=== PATIENT | female | born 1960 | race Caucasian/White ===

== ENCOUNTER 2020-04-18 06:26 | Day surgery (SDC) | payer OTHER, SELFPAY ==
[2020-04-15 09:03] VITALS: BMI 33.4
--- NOTE | 2020-04-17 10:46 | HO.ANESPROP2 ---
Documented by User: Lisa Whitt 04/17/20 10:47 HPI - Anesthesia Eval Consult details Narrative: 59yo F for colonoscopy PMFSH Past Medical History Medical History (Updated 04/18/20 @ 07:31 by Kelsea Akhtar) Allergic rhinitis Asthma History of depression History of palpitations History of pneumonia Increased BMI ANA on CPAP Surgical History Surgical History Hx of colonoscopy Hx of dilation and curettage Hx of total hysterectomy Social History Social History Smoking Status: Former smoker Smoked in Last 30 Days: No Smoking Quit Date: 42 years ago Patient Interested in Nicotine Replacement: No Patient Given Instructions on How to Stop Smoking: No Second Hand Smoke Exposure: No Use of substances other than those prescribed or required for medical reasons: No Advance Directives: No Advance Directives Information Provided: Yes Meds Allergies Allergy/AdvReac Type Severity Reaction Status Date / Time ciprofloxacin Allergy Unknown hives/edema Verified 04/15/20 08:57 citalopram [Celexa] Allergy Unknown unknown , Verified 04/15/20 08:57 ? itching sertraline [Zoloft] Allergy Unknown hives Verified 04/15/20 08:57 Sulfa (Sulfonamide Allergy Unknown edema, Verified 04/18/20 06:58 Antibiotics) itching Septra Allergy Unknown angioedema Uncoded 04/15/20 08:57 Home Medications Medication Instructions Recorded Confirmed Type albuterol sulfate 2 inh INHALATION Q4-6H PRN 04/15/20 04/15/20 History cholecalciferol (vitamin D3) cap PO DAILY 04/15/20 History loratadine 1 tab PO DAILY 04/15/20 04/15/20 History paroxetine HCl 1 tab PO QAM 04/15/20 04/15/20 History polyethylene glycol 3350 [Purelax] PO 04/15/20 History Exam Exam Date and Time: April 17, 2020 1046 Height,Weight and Vital Signs: Height 5 ft 6 in Weight 93.894 kg Pertinent Lab Results Pertinent Lab Results: Laboratory Tests 03/08/20 08:40 Sodium 140 Potassium 4.5 Chloride 104 BUN 16 Creatinine 0.94 Assessment and Plan Assessment Anesthesia Assessment: Chart Reviewed Documented by User: Kelsea Akhtar 04/18/20 07:33 PMFSH Past Medical History Medical History (Updated 04/18/20 @ 07:31 by Kelsea Akhtar) Allergic rhinitis Asthma History of depression History of palpitations History of pneumonia Increased BMI ANA on CPAP Family History Family history of problems with anesthesia: No Surgical History Surgical History Hx of colonoscopy Hx of dilation and curettage Hx of total hysterectomy History of Problems with Anesthesia: No Social History Social History Smoking Status: Former smoker Smoked in Last 30 Days: No Smoking Quit Date: 42 years ago Patient Interested in Nicotine Replacement: No Patient Given Instructions on How to Stop Smoking: No Second Hand Smoke Exposure: No Use of substances other than those prescribed or required for medical reasons: No Advance Directives: No Advance Directives Information Provided: Yes Meds Allergies Allergy/AdvReac Type Severity Reaction Status Date / Time ciprofloxacin Allergy Unknown hives/edema Verified 04/15/20 08:57 citalopram [Celexa] Allergy Unknown unknown , Verified 04/15/20 08:57 ? itching sertraline [Zoloft] Allergy Unknown hives Verified 04/15/20 08:57 Sulfa (Sulfonamide Allergy Unknown edema, Verified 04/18/20 06:58 Antibiotics) itching Septra Allergy Unknown angioedema Uncoded 04/15/20 08:57 Home Medications Medication Instructions Recorded Confirmed Type albuterol sulfate 2 inh INHALATION Q4-6H PRN 04/15/20 04/15/20 History cholecalciferol (vitamin D3) cap PO DAILY 04/15/20 History loratadine 1 tab PO DAILY 04/15/20 04/15/20 History paroxetine HCl 1 tab PO QAM 04/15/20 04/15/20 History polyethylene glycol 3350 [Purelax] PO 04/15/20 History Exam Height,Weight and Vital Signs: Vital Signs Temp Pulse Resp BP Pulse Ox 10/22/20 07:00 98.6 F 86 16 110/48 L 97 Airway Mallampati Class: I TM Dist: >3cm Neck ROM: Full Loose/Missing/Broken Teeth: No (Cap intact) Heart: RRR Lungs: CTAB Assessment and Plan Assessment Anesthesia Assessment: Anesthesia Plan Discussed and Chart Reviewed Final Anesthetic Review NPO: Yes ASA Class: III Final Preanesthetic Review: No Changes in Pt Med Stat, Meds/Allgs Chart Reviewed, Consent Obtained/Reviewed and Anes Risks/Benef Reviewed Patient Risk: Intermediate Procedure Risk: Low Anesthetic Plan Anesthetic Plan: MAC: Disposition: Standard PACU
[2020-04-18 07:00] VITALS: BP 110/48; PULSE 86; RESP 16; TEMP 37; O2SAT 97
[2020-04-18] MEDS: Lactated Ringers 1,000 ML 100 ML IVCONT (07:03)
[2020-04-18 07:07] VITALS: BMI 33.4
--- NOTE | 2020-04-18 07:41 | MHC.SHP ---
Pre-Procedural Eval Section A The patient is an INPATIENT: No The History & Physical has been completed within 30 days and I have reviewed it.: No Section B Chief Complaint: Fmaily HX Colon CA Details of Present Illness: colon cancer screening Relevant Family History (Specify if Yes): Yes Relevant Social History: None Present Medications: see Short Stay Collaborative assessment Medical History: No relevant PMH (ANA--does not use CPap regularly, asthma, constipation, Gerd, Depression) History of Previous Operations: Relevant previous surgery/procedure and date(s) (Partial hysterectomy-fibroids) Allergies: Allergies Allergy/AdvReac Type Severity Reaction Status Date / Time ciprofloxacin Allergy Unknown hives/edema Verified 04/15/20 08:57 citalopram [Celexa] Allergy Unknown unknown , Verified 04/15/20 08:57 ? itching sertraline [Zoloft] Allergy Unknown hives Verified 04/15/20 08:57 Sulfa (Sulfonamide Allergy Unknown edema, Verified 04/18/20 06:58 Antibiotics) itching Septra Allergy Unknown angioedema Uncoded 04/15/20 08:57 Review of Systems Sugical H&P ROS: Negative: Constitution, Cardiovascular and Neurological and Yes, Specify: Respiratory (ANA--asthma), Psychiatric (Depresssion), Hem-Onc and Gastrointestinal (Constipation; Hx of GERD) Review of Systems Comment: Generally negative Exam Surgical H&P Exam: Normal: HEENT, Normal: Heart, Normal: Lungs, Normal: Extremities and Normal: Abdomen Plan Diagnosis/Plan: Unchanged Patient has been examined and remains a candidate for the planned procedure--YES
--- NOTE | 2020-04-18 07:45 | PM.PROC ---
Brief Operative Note Date of procedure: 04/18/20 Pre-op diagnosis: Colonoscopy, Mother with colon cancer Around age 56. Post-op diagnosis: other (Diverticulosis, Hx colon cancer --Mother) Procedure: Colonoscropy Anesthesia: MAC (CASEY Franz) Surgeon: Tatyana Gonzalez Estimated blood loss (mL): 0 Pathology: none sent Condition: stable Disposition: PACU
[2020-04-18 08:24] VITALS: BP 125/57; PULSE 87; RESP 16; TEMP 36.1; O2SAT 98
[2020-04-18 08:39] VITALS: BP 115/57; PULSE 87; RESP 18; O2SAT 96
--- NOTE | 2020-04-18 09:17 | HO.POSTANES ---
Documented by User: Lisa Whitt 04/18/20 09:17 Post Anesthesia Evaluation Post Anesthesia Evaluation Vital Signs: Vital Signs Temp Pulse Resp BP Pulse Ox 04/18/20 08:39 97 F 87 18 115/57 L 96 04/18/20 08:24 97 F 87 16 125/57 L 98 04/18/20 07:00 98.6 F 86 16 110/48 L 97 Anesthesia: General (TIVA) Mental Status: Awake Pain Control: Satisfactory Nausea/Vomiting: None Hydration: Adequate Anesthesia-Related Issues: No Anes. Related Issues Documented by User: Kelsea Akhtar 04/23/20 07:43 Post Anesthesia Evaluation Post Anesthesia Evaluation Anesthesia: Monitored Mental Status: Awake Pain Control: Satisfactory Nausea/Vomiting: None Hydration: Adequate Anesthesia-Related Issues: No Anes. Related Issues
--- NOTE | 2020-04-21 12:03 | OP_ITS ---
SURGEON: Tatyana Gonzalez MD PREOPERATIVE DIAGNOSIS: Colon cancer screening, increased risk. Mother with history of colon cancer. POSTOPERATIVE DIAGNOSIS: Diverticulosis. PROCEDURE PERFORMED: Colonoscopy. ESTIMATED BLOOD LOSS: Minimal. COMPLICATIONS: No complications. ANESTHESIA: Monitored. ANESTHESIOLOGIST: Wero Franz CRNA. ASSISTANTS:NONE SPECIMENS: Specimens removed; none. PRIMARY CARE PROVIDER: Dr. Madsen. BELT SPLICER: Dr. Gonzalez. FINDINGS: Digital rectal exam revealed decreased sphincter tone. Video colonoscope was introduced without difficulty. It was navigated into a fairly telescoped rectosigmoid and sigmoid. Slow progress was made to this area. Ultimately, scope entered the descending, transverse, ascending colon down into the cecum. Appendiceal orifice was seen. Ileocecal valve was well seen. There were scattered diverticula present on this exam. Prep was excellent. Slow withdrawal of the scope, good rotational views. No mucosal lesions were appreciated, anorectal verge was clear. PLAN: Repeat colon cancer screening with a high-risk family history is 5 years. DIRECTOR OF EARLY CHILDHOOD EDUCATION: No certified medical technician assistant. GRAFT OR IMPLANTS: No grafts or implants. CONDITION: Postprocedure, stable. Tatyana Gonzalez MD MEN/MODL / [id number] MTDD
== END 2020-04-18 09:39 | disposition home or self-care (01) ==
PROVIDERS: PCP Internal Medicine; Visit Provider Internal Medicine Gastroenterology
PROC: 0DJD8ZZ Inspection of Lower Intestinal Tract, Via Natural or Artificial Opening Endoscopic (ICD-10-PCS; CPT 45378; principal; 2020-04-18 07:30)
DX: Z12.11 Encounter for screening for malignant neoplasm of colon (principal); Z80.0 Family history of malignant neoplasm of digestive organs; K57.30 Diverticulosis of large intestine without perforation or abscess without bleeding; K59.04 Chronic idiopathic constipation; K21.9 Gastro-esophageal reflux disease without esophagitis; E78.00 Pure hypercholesterolemia, unspecified; G47.33 Obstructive sleep apnea (adult) (pediatric); J45.909 Unspecified asthma, uncomplicated; M81.0 Age-related osteoporosis without current pathological fracture; Z99.89 Dependence on other enabling machines and devices; Z79.899 Other long term (current) drug therapy; Z88.1 Allergy status to other antibiotic agents; Z88.2 Allergy status to sulfonamides; Z88.8 Allergy status to other drugs, medicaments and biological substances; Z87.01 Personal history of pneumonia (recurrent); Z87.891 Personal history of nicotine dependence
CPT/HCPCS: 45378

== ENCOUNTER → 2020-05-16 14:12 | Outpatient (BNVA) | payer OTHER, SELFPAY | PROVIDERS: PCP Internal Medicine; Referring Provider Internal Medicine; Visit Provider Nurse Practitioner | DX: Z76.89 Persons encountering health services in other specified circumstances (principal) ==

== ENCOUNTER 2021-05-01 11:55 | Outpatient (REF) | payer OTHER, SELFPAY ==
--- NOTE | ~2021-05-01 | MM_ITS ---
EXAMINATION: MM SCREENING DIGITAL BREAST TOMOSYNTHESIS, BILATERAL CLINICAL INFORMATION: Screening. Asymptomatic. The lifetime risk of breast cancer based on the Tyrer-Cuzick Model is 7.6%. COMPARISON: Mammography: March 26, 2020 and studies dating back to February 27, 2010 TECHNIQUE: Digital breast tomosynthesis is performed in both the craniocaudal and mediolateral oblique views along with computer-aided detection (CAD). Synthesized 2D images are generated from the tomosynthesis. Additional right breast exaggerated craniocaudal view performed. FINDINGS: The breasts are heterogeneously dense, which may obscure small masses (ACR BI-RADS breast composition Category c). There are no significant masses, abnormal calcifications, or other abnormalities. MM/MM tomosynthesis screening BI IMPRESSION: There are no significant changes from prior study. ASSESSMENT: BI-RADS 1: Negative RECOMMENDATION: Routine annual mammography screening. This patient's information was entered into a reminder system with a target due date for their next mammogram.
== END 2021-05-01 11:56 | disposition home or self-care (01) ==
LOC: HO.MAMMO 11:55
PROVIDERS: Visit Provider Internal Medicine
DX: Z12.31 Encounter for screening mammogram for malignant neoplasm of breast (principal)
CPT/HCPCS: 77063; 77067

== ENCOUNTER 2022-02-19 07:50 | Outpatient (REF) | payer OTHER, SELFPAY ==
[2022-02-19 11:51] LABS: Alanine Aminotransferase 13 U/L (0-31); Anion Gap 13 (12-20); Aspartate Amino Transferase 17 U/L (5-31); Blood Urea Nitrogen 14 mg/dL (9-16); Calcium 9.3 mg/dL (8.4-10.2); Carbon Dioxide 28 mmol/L (22-29); Chloride 105 mmol/L (96-108); Cholesterol 246 mg/dL; Estimated Glomerular Filt Rate > 60; Glucose Fasting 101 mg/dL (60-99); HDL Cholesterol 65 mg/dL; LDL Cholesterol Calculated 164 mg/dl; Potassium 4.7 mmol/L (3.3-5.1); Sodium 141 mmol/L (135-145); Triglycerides 88 mg/dL
[2022-02-19 12:15] LABS: Vitamin D 25-OH Total 33.9 ng/mL (>30)
== END 2022-02-19 07:51 | disposition home or self-care (01) ==
LOC: HO.HMGCLDS 07:50
PROVIDERS: PCP Internal Medicine; Visit Provider Internal Medicine
DX: M81.0 Age-related osteoporosis without current pathological fracture (principal); E66.09 Other obesity due to excess calories; Z68.33 Body mass index [BMI] 33.0-33.9, adult
CPT/HCPCS: 36415; 80048; 80061; 82306; 84450; 84460

== ENCOUNTER 2022-05-04 08:55 | Outpatient (REF) | payer OTHER, SELFPAY ==
[2022-05-05 10:30] LABS: BV Int Neg Control Negative (Negative); BV Int Pos Control Positive (Positive)
== END 2022-05-04 08:56 | disposition home or self-care (01) ==
LOC: HO.LAB 08:55
PROVIDERS: Visit Provider Emergency Medicine
DX: R30.0 Dysuria (principal); N89.8 Other specified noninflammatory disorders of vagina; R53.1 Weakness; R10.9 Unspecified abdominal pain
CPT/HCPCS: 87086; 87480; 87510; 87660

== ENCOUNTER 2022-05-05 08:37 | Emergency (ER) | payer OTHER, SELFPAY ==
[2022-05-05 08:41] VITALS: BP 116/38; PULSE 96; RESP 20; TEMP 36.6; O2SAT 98; BMI 33.4
[2022-05-05 08:52] LABS: MANUAL DIFF FLAG NO
[2022-05-05 08:56] LABS: Basophils Absolute Auto 0.1 X10*3/uL (0.0-0.2); Basophils Percent Auto 0.6 % (0-2); Eosinophils Absolute Auto 0.1 X10*3/uL (0.0-0.4); Eosinophils Percent Auto 0.9 % (0-4); Hematocrit 39.9 % (37.0-47.0); Hemoglobin 13.2 g/dl (12.0-16.0); Imm Gran Abs Auto 0.03 X10*3/uL (0.00-0.03); Imm Gran Pct Auto 0.3 % (0.0-0.4); Lymphocytes Absolute Auto 1.1 X10*3/uL (1.2-4.9); Lymphocytes Percent Auto 11.5 % (20-40); Mean Corpuscular HGB Conc 33.1 g/dl (31.0-35.0); Mean Corpuscular Hemoglobin 31.1 pg (27.0-33.0); Mean Corpuscular Volume 94.1 fL (80.0-98.0); Mean Platelet Volume 10.6 fL (9.4-12.3); Monocytes Absolute Auto 0.6 X10*3/uL (0.1-1.2); Monocytes Percent Auto 6.7 % (2-11); Neutrophils Absolute Auto 7.6 x10*3/uL (2.0-8.3); Platelet Count 275 X10*3/uL (160-400); Red Blood Count 4.24 X10*6/uL (4.20-5.50); Red Cell Distribution Width 12.2 % (11.0-16.0); White Blood Count 9.6 X10*3/uL (4.8-10.8)
[2022-05-05 09:10] VITALS: BP 113/60; PULSE 83; RESP 16; TEMP 36.8; O2SAT 97
[2022-05-05 09:38] LABS: Creatinine Clr Calc Pharmacy 80.2; Estimated Glomerular Filt Rate > 60
[2022-05-05 09:39] LABS: Anion Gap 16 (12-20); Blood Urea Nitrogen 9 mg/dL (9-16); Calcium 9.2 mg/dL (8.4-10.2); Carbon Dioxide 25 mmol/L (22-29); Chloride 104 mmol/L (96-108); Glucose Random 127 mg/dL (60-115); Potassium 3.7 mmol/L (3.3-5.1); Sodium 141 mmol/L (135-145)
[2022-05-05 10:23] LABS: Appearance Urine Clear; Color Urine Dark Yellow; Glucose Urine UA Negative (Negative); Leukocyte Esterase Urine Small (1+) (Negative); Nitrite Urine Negative (Negative); Specific Gravity - Urine 1.025 (1.005-1.025); UMIC TRIGGER UACC YES; Urine Blood Trace (Negative); Urine Ketones Trace mg/dL (Negative); Urine Protein 30 (1+) mg/dL (Neg-Trace)
[2022-05-05 10:28] LABS: Bacteria Urine Trace (None Seen); UACC Culture Trigger YES
--- NOTE | 2022-05-05 10:37 | ED.GENADULT ---
HPI - General Adult General Chief complaint: Abdominal Pain Stated complaint: Abd pain Time Seen by Provider: 05/05/22 09:46 Source: patient Mode of arrival: ambulatory Limitations: no limitations History of Present Illness HPI narrative: 61-year-old female presents to the ED lower abdominal cramping intermittently for the past couple weeks and also states constipation but finally had a bowel movement this morning. Patient denies any flank pain, fever, chills, hematuria, or dysuria. Patient denies any recent trauma. Related Data Home Medications Medication Instructions Recorded Confirmed albuterol sulfate 90 mcg/actuation 2 inh inhalation Q4-6H PRN Wheezing 04/15/20 02/05/22 breath activated powder inhaler cholecalciferol (vitamin D3) 25 cap PO DAILY 04/15/20 02/05/22 mcg (1,000 unit) capsule polyethylene glycol 3350 17 PO 04/15/20 02/05/22 gram/dose oral powder (Purelax) Previous Rx's Medication Instructions Recorded fluticasone propionate 50 1 spray intranasal DAILY #16 grams 11/04/20 mcg/actuation nasal spray,suspension (Flonase Allergy Relief) loratadine 10 mg tablet 10 mg PO DAILY PRN allergic 02/17/22 symptoms #90 tabs paroxetine HCl 20 mg tablet 20 mg PO QAM 90 days #90 tabs 02/17/22 cefuroxime axetil 250 mg tablet 250 mg PO Q12H 7 days #14 tabs 05/05/22 naproxen 500 mg tablet 500 mg PO BID PRN pain 10 days #20 05/05/22 tabs Allergies Allergy/AdvReac Type Severity Reaction Status Date / Time ciprofloxacin Allergy Unknown hives/edema Verified 05/04/22 08:30 citalopram [Celexa] Allergy Unknown unknown , Verified 05/04/22 08:30 ? itching sertraline [Zoloft] Allergy Unknown hives Verified 05/04/22 08:30 Sulfa (Sulfonamide Allergy Unknown edema, Verified 05/04/22 08:30 Antibiotics) itching Septra Allergy Unknown angioedema Uncoded 05/04/22 08:30 Review of Systems Review of Systems: Lower abdominal cramping. Constipation. Yes all other systems are reviewed and are negative PMFSH Past Medical History Medical History (Updated 05/05/22 @ 10:47 by JOYA Mathur) Allergic rhinitis Anxiety and depression COVID-19 vaccination declined History of uterine fibroid Mild intermittent asthma Obesity ANA on CPAP Osteoporosis Urticaria Surgical History Hx of colonoscopy Hx of dilation and curettage Hx of LASIK Hx of total hysterectomy Family History Family History Father Diabetes Gout Obese Mother Colon cancer H/O: hysterectomy Maternal Aunt Cancer Maternal Aunt Cancer Social History Social History Household Members: Friend(s) Housing: House Alcohol intake: never Patient Tobacco Use Status: Former Tobacco user Cigarettes Per Day: 2 Smoked in Last 30 Days: No e-Cigarette/Vaping Use: Never Used Second Hand Smoke Exposure: No Use of substances other than those prescribed or required for medical reasons: No Advance Directives: No Advance Directives Information Provided: Yes service: No Current occupational status: employed Cognitive needs: No Hearing needs: No Vision needs: Yes Physical Exam ED Vital Signs: Vital Signs - 24 hr 05/05/22 08:41 05/05/22 09:10 05/05/22 10:46 Temperature 97.8 F 98.3 F 99 F Pulse Rate 96 83 76 Respiratory Rate 20 16 16 Blood Pressure 116/38 L 113/60 116/59 L Pulse Oximetry 98 97 98 Oxygen Delivery Method Room Air Room Air Room Air BMI result Body Mass Index 33.4 Const General: cooperative, healthy appearing, comfortable, no acute distress, well developed, alert, awake and Physically active Orientation/consciousness: oriented to person, oriented to place, oriented to time and patient oriented x3 HENMT Head: Yes normal to inspection, Yes No palpable skull fracture present, Yes normocephalic, Yes atraumatic and No abrasion Eyes General: appearance normal, both eyes and all related structures Neck Neck: Yes normal visual inspection, Yes full ROM, Yes no lymphadenopathy, Yes no meningeal signs, Yes trachea midline, Yes supple, No anterior neck swelling and No tender Chest Chest palpation & inspection: normal inspection of the chest and normal palpation of entire chest wall Resp Effort & Inspection: normal respiratory effort and able to speak in complete sentences Auscultation: clear to auscultation bilaterally Cardio Jugular venous distension: no JVD Heart sounds: S1 normal heart sound present and S2 normal heart sound present GI Other: normal bowel sounds. Inspection: Yes normal to inspection, No abdominal wall ecchymosis and No distended Palpation (GI): Soft to palpation, not firm, Tenderness to palpation present (GI) suprapubicly, no guarding and not rigid General: No CVA tenderness and Yes no CVA tenderness Back/Spine/Pelvis Back: no CVA tenderness, No CVA tenderness and No back tenderness Skin General skin exam: no rashes or lesions noted and elasticity normal Neuro General: oriented to person, oriented to place, oriented to time, patient oriented x3, gait normal, tone normal and no meningeal signs Cranial nerves: Yes CN's II-XII intact bilaterally Extrem General: Yes normal to inspection and Yes full ROM Psych Appearance: grossly normal, well kempt and not disheveled Course Course Course Narrative: Rapid medical screening done in triage. Patient labs came back with normal white blood cell count and normal chemistry. Would add liver enzymes and lipase. Will order urinalysis. Patient states history of diverticulosis. If urinalysis come back normal patient will be sent for CT scan and to rule out colitis. Reevaluation(s) Reevaluation #1: Liver enzymes and lipase were normal. UA shows UTI. patient sleeping comfortable int he bed and not in distress. NO abdominal CT scan needed. Not suspecting colitis, kidney stone, bowel obstruction, or pyelonephritis. Not suspect any other life threatening emerging abdominal etiology. Patient informed to follow-up primary care provider Time: 10:44 UTI Medical Decision Making Lab Data Result diagrams: 05/05/22 08:48 05/05/22 08:48 Labs: Lab Results 05/05/22 05/05/22 05/05/22 Range/Units 08:48 08:48 09:59 WBC 9.6 (4.8-10.8) X10*3/uL RBC 4.24 (4.20-5.50) X10*6/uL Hgb 13.2 (12.0-16.0) g/dl Hct 39.9 (37.0-47.0) % MCV 94.1 (80.0-98.0) fL MCH 31.1 (27.0-33.0) pg MCHC 33.1 (31.0-35.0) g/dl RDW 12.2 (11.0-16.0) % Plt Count 275 (160-400) X10*3/uL MPV 10.6 (9.4-12.3) fL Immature Gran % (Auto) 0.3 (0.0-0.4) % Neut % (Auto) 80.0 H (45-73) % Lymph % (Auto) 11.5 L (20-40) % [place] % (Auto) 6.7 (2-11) % Eos % (Auto) 0.9 (0-4) % Baso % (Auto) 0.6 (0-2) % Lymph # (Auto) 1.1 L (1.2-4.9) X10*3/uL [place] # (Auto) 0.6 (0.1-1.2) X10*3/uL Eos # (Auto) 0.1 (0.0-0.4) X10*3/uL Baso # (Auto) 0.1 (0.0-0.2) X10*3/uL Abs Immat Gran (auto) 0.03 (0.00-0.03) X10*3/uL Absolute Neuts (auto) 7.6 (2.0-8.3) x10*3/uL Absolute Nucleated RBC 0.000 (0.0-0.012) X10*3/uL Nucleated RBC % (auto) 0.0 (0.0-0.2) /100WBC Sodium 141 (135-145) mmol/L Potassium 3.7 D (3.3-5.1) mmol/L Chloride 104 (96-108) mmol/L Carbon Dioxide 25 (22-29) mmol/L Anion Gap 16 (12-20) BUN 9 (9-16) mg/dL Creatinine 0.85 (0.5-1.4) mg/dL Estim Creat Clear Calc 80.2 Estimated GFR > 60 Random Glucose 127 H (60-115) mg/dL Calcium 9.2 (8.4-10.2) mg/dL Total Bilirubin 0.6 (0.0-1.0) mg/dL Direct Bilirubin 0.3 (0.0-0.5) mg/dL AST 14 (5-31) U/L ALT 13 (0-31) U/L Alkaline Phosphatase 71 (39-117) U/L Total Protein 6.9 (6.5-8.0) g/dL Albumin 4.2 (3.5-5.0) g/dL Lipase 8 (8-78) U/L Urine Color Dark Yellow Urine Appearance Clear Urine pH 6.0 (5.0-9.0) Ur Specific [place] 1.025 (1.005-1.025) Urine Protein 30 (1+) H (Neg-Trace) mg/dL Urine Glucose (UA) Negative (Negative) mg/dL Urine Ketones Trace (Negative) mg/dL Urine Blood Trace H (Negative) Urine Nitrite Negative (Negative) Ur Leukocyte Esterase Small (1+) H (Negative) Urine RBC 3-5 H (0-2) /HPF Urine WBC 6-10 H (0-5) /HPF Ur Squamous Epith Cells 3-5 (0-2) /HPF Urine Bacteria Trace (None Seen) Hyaline Casts 3-5 (0-2) /LPF Discharge Plan Discharge Clinical Impression: UTI (urinary tract infection), Abdominal pain Patient Disposition: Home, Self-Care Instructions: Urinary Tract Infection in Women (ED), Abdominal Pain (ED) Additional Instructions: Your blood work came back normal. Your urine shows an infection. You will be discharged with antibiotics. Return to the ED immediately for worsening abdominal pain, nausea, vomiting, flank pain, fever, chills, hematuria, dysuria, or any other concerning symptoms. Please follow up with PCP. Prescriptions: New naproxen 500 mg tablet 500 mg PO BID PRN (Reason: pain) 10 Days Qty: 20 0RF cefuroxime axetil 250 mg tablet 250 mg PO Q12H 7 Days Qty: 14 0RF No Action fluticasone propionate [Flonase Allergy Relief] 50 mcg/actuation spray,suspension 1 spray intranasal DAILY Qty: 16 0RF Rx Instructions: administer into each nostril polyethylene glycol 3350 [Purelax] 17 gram/dose powder PO cholecalciferol (vitamin D3) 25 mcg (1,000 unit) capsule PO DAILY albuterol sulfate 90 mcg/actuation Aerosol Powdr Breath Activated 2 inh INHALATION Q4-6H PRN (Reason: Wheezing) loratadine 10 mg tablet 10 mg PO DAILY PRN (Reason: allergic symptoms) Qty: 90 1RF paroxetine HCl 20 mg tablet 20 mg PO QAM 90 Days Qty: 90 3RF Stand Alone Forms: Work/School Release Interventions: ED Discharge Assessment Last Done: 05/05/22 11:04 Discharge Date/Time: 05/05/22 11:06 Print Language: [place]
[2022-05-05 10:46] VITALS: BP 116/59; PULSE 76; RESP 16; TEMP 37.2; O2SAT 98
[2022-05-05 11:00] LABS: Alanine Aminotransferase 13 U/L (0-31); Albumin Level 4.2 g/dL (3.5-5.0); Alkaline Phosphatase 71 U/L (39-117); Aspartate Amino Transferase 14 U/L (5-31); Bilirubin Direct 0.3 mg/dL (0.0-0.5); Bilirubin Total 0.6 mg/dL (0.0-1.0); Lipase 8 U/L (8-78); Total Protein 6.9 g/dL (6.5-8.0)
== END 2022-05-05 11:06 | disposition home or self-care (01) ==
PROVIDERS: Physician Assistant; Emergency Provider Emergency Medicine Emergency Medical Services; PCP Internal Medicine
DX: R10.30 Lower abdominal pain, unspecified (principal); N39.0 Urinary tract infection, site not specified; E66.9 Obesity, unspecified; Z68.33 Body mass index [BMI] 33.0-33.9, adult
CPT/HCPCS: 36415; 80048; 80076; 81001; 83690; 85025; 99283; 99284

== ENCOUNTER 2022-06-05 12:57 | Outpatient (REF) | payer OTHER, SELFPAY ==
[2022-06-05 13:41] LABS: Binax Internal Control QC Valid; Binax Now Covid-19 Ag Negative (Negative)
== END 2022-06-05 12:58 | disposition home or self-care (01) ==
LOC: HO.HMGCLDS 12:57
PROVIDERS: PCP Internal Medicine
DX: J02.9 Acute pharyngitis, unspecified (principal); Z20.822 Contact with and (suspected) exposure to COVID-19
CPT/HCPCS: 87811; C9803

== ENCOUNTER 2022-11-21 08:33 | Emergency (ER) | payer OTHER, SELFPAY ==
--- NOTE | ~2022-11-21 | CT_ITS ---
EXAMINATION: CT ABDOMEN AND PELVIS WITH CONTRAST CLINICAL INFORMATION: Hematuria, nausea and vomiting COMPARISON: None available. TECHNIQUE: Multidetector volumetric images were obtained from the superior aspect of the liver through the pubic symphysis following administration 85 mL of Omnipaque 350 intravenous contrast. Sagittal and coronal reformatted images were obtained on the technologist's workstation. Oral contrast: No This CT examination was performed using dose optimization techniques as appropriate, variously including the following: *Automated exposure control *Adjustment of mA and/or kV according to patient size (this includes techniques or standardized protocols for targeted exams where dose is matched to indication/reason for exam; i.e. extremities or head) *Use of iterative reconstruction technique DLP: 680 mGy-cm FINDINGS: LUNG BASES: The lung bases are clear heart size is normal LIVER, GALLBLADDER, AND BILIARY TREE: The liver is normal in size, shape, and attenuation. 3 mm hypodensity seen in left hepatic lobe axial image 19/3. This too small to correctly characterize. No additional lesions seen. No intrahepatic ductal dilatation. The gallbladder is unremarkable with no evidence of radiopaque gallstones, gallbladder wall thickening, or obvious pericholecystic inflammatory changes. PANCREAS: Unremarkable. SPLEEN: The pancreas is unremarkable. A small calcification along the anterior spleen. ADRENAL GLANDS: Unremarkable. KIDNEYS AND URETERS: The kidneys are normal in size, shape, and attenuation. No hydronephrosis, hydroureter, or calculi seen. No perinephric stranding. There is a 9 mm hypodensity midpole left kidney probable cyst BLADDER: The bladder is nondistended and appears unremarkable. GASTROINTESTINAL TRACT: There is moderate scattered stool seen throughout the colon consistent with constipation. There is mild mural thickening and pericolic fat stranding seen involving redundant sigmoid colon likely colitis ABDOMINAL WALL: No significant hernia is appreciated. LYMPH NODES: Normal. VASCULAR: The abdominal aorta is of normal caliber. PELVIC VISCERA: Moderate stool in the sigmoid colon OSSEOUS STRUCTURES: Unremarkable. CT/CT abdomen pelvis w IV con IMPRESSION: 1. Mild mural thickening and pericolic fat stranding involving redundant sigmoid colon likely colitis. There is moderate constipation. 2. No radiopaque urolith or hydroureteronephrosis. Fleischner guidelines were followed.
[2022-11-21 09:04] VITALS: BP 109/71; PULSE 77; RESP 17; TEMP 36.7; O2SAT 98; BMI 33.4
[2022-11-21 09:54] LABS: Appearance Urine Clear; Color Urine Yellow; Glucose Urine UA Negative (Negative); Leukocyte Esterase Urine Small (1+) (Negative); Nitrite Urine Negative (Negative); PH 5.5 (5.0-9.0); UMIC TRIGGER UACC YES; Urine Blood Trace (Negative); Urine Ketones Trace mg/dL (Negative); Urine Protein Negative (Neg-Trace)
--- NOTE | 2022-11-21 09:58 | ED_ITS ---
HPI - General Adult General Chief complaint: General Medical Stated complaint: abd pain Time Seen by Provider: 11/21/22 09:42 Source: patient, RN notes reviewed and old records reviewed Mode of arrival: ambulatory History of Present Illness HPI narrative: 62-year-old female with a past medical history of allergic rhinitis, anxiety, depression, uterine fibroid, asthma, obesity, ANA, presenting to the ED complaining of lower abdominal pain/pressure, headache, generalized fatigue, and myalgias since yesterday. Also reports associated nausea and vomiting. Denies fever, vision changes/loss, diarrhea, dysuria/hematuria, flank pain Onset (ago): day(s) Related Data Home Medications Medication Instructions Recorded Confirmed albuterol sulfate 90 mcg/actuation 2 inh inhalation Q4-6H PRN Wheezing 04/15/20 06/05/22 breath activated powder inhaler cholecalciferol (vitamin D3) 25 cap PO DAILY 04/15/20 06/05/22 mcg (1,000 unit) capsule polyethylene glycol 3350 17 PO 04/15/20 06/05/22 gram/dose oral powder (Purelax) Previous Rx's Medication Instructions Recorded paroxetine HCl 20 mg tablet 20 mg PO QAM 90 days #90 tabs 02/17/22 cefuroxime axetil 250 mg tablet 250 mg PO Q12H 7 days #14 tabs 05/05/22 naproxen 500 mg tablet 500 mg PO BID PRN pain 10 days #20 05/05/22 tabs metronidazole 500 mg tablet 500 mg PO BID 7 days #14 tabs 05/11/22 loratadine 10 mg tablet 10 mg PO DAILY PRN allergic 06/12/22 symptoms #90 tabs fluticasone propionate 50 1 spray intranasal DAILY #16 grams 08/14/22 mcg/actuation nasal spray,suspension (Flonase Allergy Relief) cefuroxime axetil 500 mg tablet 500 mg PO BID 7 days #14 tabs 11/21/22 Allergies Allergy/AdvReac Type Severity Reaction Status Date / Time ciprofloxacin Allergy Unknown hives/edema Verified 06/05/22 12:22 citalopram [Celexa] Allergy Unknown unknown , Verified 06/05/22 12:22 ? itching sertraline [Zoloft] Allergy Unknown hives Verified 06/05/22 12:22 Sulfa (Sulfonamide Allergy Unknown edema, Verified 06/05/22 12:22 Antibiotics) itching Septra Allergy Unknown angioedema Uncoded 06/05/22 12:22 Review of Systems Review of Systems: Constitutional: No Fever, No Chills,No Fatigue, No Malaise ENT/Mouth: No Ear Pain, No Nasal Congestion, No sore throat, No Rhinorrhea, No Swallowing Difficulty Eyes: No Eye Pain, No Swelling, No Vision Changes Cardiovascular: No Chest Pain, No SOB, No Edema, No Palpitations Respiratory: No Cough, No Dyspnea Gastrointestinal: +Nausea, + Vomiting, No Diarrhea, No Constipation, +Abdominal pain Genitourinary: No Dysuria, No Urinary Frequency, No Hematuria,No Flank Pain, No Urinary Flow Changes, No Hesitancy Musculoskeletal: No joint pain, No Myalgias, No Joint Swelling Skin: No Skin Lesions, No rash Neuro: No Weakness, No Dizziness, No Headache Yes all other systems are reviewed and are negative Constitutional: Constitutional: Reports as per [facility] Past Medical History Attestation statement: The following information was validated with the patient. Source: old records reviewed Medical History Acute viral pharyngitis Allergic rhinitis Anxiety and depression COVID-19 vaccination declined History of uterine fibroid Mild intermittent asthma Obesity ANA on CPAP Osteoporosis Urticaria Surgical History Hx of colonoscopy Hx of dilation and curettage Hx of LASIK Hx of total hysterectomy Family History Family History Father Diabetes Gout Obese Mother Colon cancer H/O: hysterectomy Maternal Aunt Cancer Maternal Aunt Cancer Social History Social History Household Members: Friend(s) Housing: House Alcohol intake: current Alcohol intake frequency: holidays/special occasions only Patient Tobacco Use Status: Former Tobacco user Cigarettes Per Day: 2 Smoked in Last 30 Days: No e-Cigarette/Vaping Use: Never Used Second Hand Smoke Exposure: No Use of substances other than those prescribed or required for medical reasons: No Advance Directives: No Advance Directives Information Provided: Yes Patient : No service: No Current occupational status: employed Cognitive needs: No Hearing needs: No Vision needs: Yes Physical Exam ED Vital Signs: Vital Signs - 24 hr 11/21/22 09:04 11/21/22 10:51 11/21/22 13:38 Temperature 98.1 F 98.9 F 98.4 F Pulse Rate 77 69 78 Respiratory Rate 17 18 16 Blood Pressure 109/71 134/55 L 122/53 L Pulse Oximetry 98 95 100 Oxygen Delivery Method Room Air Room Air Room Air 11/21/22 14:27 11/21/22 14:33 Temperature 98.2 F 98.6 F Pulse Rate 71 69 Respiratory Rate 15 18 Blood Pressure 140/78 H 133/52 L Pulse Oximetry 96 97 Oxygen Delivery Method Room Air Room Air BMI result Body Mass Index 33.4 Const General: cooperative and no acute distress Orientation/consciousness: patient oriented x3 Limitations: no limitations HENMT Head: Yes normal to inspection and Yes atraumatic Ears: hearing grossly normal bilaterally General nose exam: Normal external nose present Face and sinus: Yes normal facial exam Eyes General: appearance normal, both eyes and all related structures EOM: EOMs intact bilaterally Neck Neck: Yes normal visual inspection and Yes no meningeal signs Resp Effort & Inspection: normal respiratory effort and no respiratory distress Auscultation: clear to auscultation bilaterally Cardio Rate: regular rate Heart sounds: S1 normal heart sound present and S2 normal heart sound present GI Inspection: Yes normal to inspection Palpation (GI): Soft to palpation, Tenderness to palpation present (GI) suprapubicly (mild); with no rebound tenderness, no guarding and not rigid General: Yes no CVA tenderness Back/Spine/Pelvis Back: no CVA tenderness Skin Rashes: no rashes Wounds: no wounds Neuro General: patient oriented x3, tone normal and no meningeal signs Extrem General: Yes normal to inspection Course Course Course Narrative: -1253--no leukocytosis. Labs otherwise reassuring -UA with trace blood, 1+ leuk esterase, rbc's, not infected -COVID and influenza negative >1256--on re-evaluation patient reports continued abdominal discomfort. Abdomen soft, RLQ focal tenderness now appreciated. Will obtain CT to rule out appendicitis 1430--CT abdomen pelvis w IV con IMPRESSION: 1.? Mild mural thickening and pericolic fat stranding involving redundant sigmoid colon likely colitis. There is moderate constipation. 2.? No radiopaque urolith or hydroureteronephrosis. ? Fleischner guidelines were followed. > on re-evaluation patient reports mild symptomatic improvement. Tolerating p.o. Results discussed with patient including worrisome signs and symptoms and strict return precautions, and when to return to the emergency department. They verbalized understanding and feel safe for discharge at this time. Medications Administered Discontinued Medications Generic Name Dose Route Start Last Admin Trade Name Freq PRN Reason Stop Dose Admin Acetaminophen/Butalbital/Caffeine 1 tab 11/21/22 12:58 11/21/22 13:09 Butalb/Acetamin/Caff 50/325/40 Tablet PO 11/21/22 12:59 1 tab ONCE ONE Administration Diphenhydramine HCl 12.5 mg 11/21/22 10:04 11/21/22 10:44 Diphenhydramine Hcl 50 Mg/Ml Vial IVPUSH 11/21/22 10:05 12.5 mg ONCE ONE Administration Sodium Chloride 1,000 mls @ 999 mls/hr 11/21/22 10:15 11/21/22 14:22 Ns IV 11/21/22 11:15 Infused .Q1H1M CHARAN Infusion Iohexol 85 ml 11/21/22 13:31 11/21/22 13:32 Iohexol 350 Mg/Ml 100 Ml Infus..Btl IV 11/21/22 13:32 85 ml ONCE ONE Administration Ketorolac Tromethamine 15 mg 11/21/22 10:04 11/21/22 10:43 Ketorolac Tromethamine 15 Mg/Ml Vial IVPUSH 11/21/22 10:05 15 mg ONCE ONE Administration Metoclopramide HCl 10 mg 11/21/22 10:04 11/21/22 10:44 Metoclopramide Hcl 10 Mg/2 Ml Vial IVPUSH 11/21/22 10:05 10 mg ONCE ONE Administration Medical Decision Making Medical Decision Making MDM Narrative: 62-year-old female with a past medical history of allergic rhinitis, anxiety, depression, uterine fibroid, asthma, obesity, ANA, presenting to the ED complaining of lower abdominal pain/pressure, headache, generalized fatigue, and myalgias since yesterday. On exam vital signs stable, NAD, nontoxic appearing, abdomen soft/mild suprapubic tenderness, no rebound or guarding, no CVAT. Concern for UTI vs gastroenteritis/colitis vs viral syndrome. Lower suspicion for renal stone/pyelo, appendicitis/diverticulitis or cholecystitis at this time. Low suspicion for meningitis/encephalitis or CVA Plan: Labs, UA, COVID/flu testing, IVF, pain control, re-evaluate Please refer to course for remaining clinical decision making, interpretation of labs/imaging results, and discussions with consultants and/or family members. Differential Diagnosis Differential Diagnoses: The differential diagnosis associated with the presentation includes As above Admission/Observation Consideration of admission/observation: Escalation of care including admission/observation considered Lab Data MDM Lab Attestation statement: I reviewed the patient's lab results. 11/21/22 10:18 11/21/22 10:18 Labs: Lab Results 11/21/22 11/21/22 11/21/22 Range/Units 09:45 10:18 10:18 WBC 8.0 (4.8-10.8) X10*3/uL RBC 4.00 L (4.20-5.50) X10*6/uL Hgb 12.6 (12.0-16.0) g/dl Hct 37.4 (37.0-47.0) % MCV 93.5 (80.0-98.0) fL MCH 31.5 (27.0-33.0) pg MCHC 33.7 (31.0-35.0) g/dl RDW 12.4 (11.0-16.0) % Plt Count 221 (160-400) X10*3/uL MPV 10.8 (9.4-12.3) fL Immature Gran % (Auto) 0.3 (0.0-0.4) % Neut % (Auto) 76.7 H (45-73) % Lymph % (Auto) 12.3 L (20-40) % Williams % (Auto) 8.9 (2-11) % Eos % (Auto) 1.4 (0-4) % Baso % (Auto) 0.4 (0-2) % Lymph # (Auto) 1.0 L (1.2-4.9) X10*3/uL Williams # (Auto) 0.7 (0.1-1.2) X10*3/uL Eos # (Auto) 0.1 (0.0-0.4) X10*3/uL Baso # (Auto) 0.0 (0.0-0.2) X10*3/uL Abs Immat Gran (auto) 0.02 (0.00-0.03) X10*3/uL Absolute Neuts (auto) 6.2 (2.0-8.3) x10*3/uL Absolute Nucleated RBC 0.000 (0.0-0.012) X10*3/uL Nucleated RBC % (auto) 0.0 (0.0-0.2) /100WBC Sodium 137 (135-145) mmol/L Potassium 3.9 (3.3-5.1) mmol/L Chloride 107 (96-108) mmol/L Carbon Dioxide 22 (22-29) mmol/L Anion Gap 12 (12-20) BUN 11 (9-16) mg/dL Creatinine 0.79 (0.5-1.4) mg/dL Estim Creat Clear Calc 85.2 Estimated GFR > 60 Random Glucose 107 (60-115) mg/dL Calcium 8.9 (8.4-10.2) mg/dL Magnesium 2.0 (1.6-2.6) mg/dL Total Bilirubin 0.7 (0.0-1.0) mg/dL Direct Bilirubin 0.2 (0.0-0.5) mg/dL AST 15 (5-31) U/L ALT 14 (0-31) U/L Alkaline Phosphatase 66 (39-117) U/L Total Protein 6.3 L (6.5-8.0) g/dL Albumin 3.7 (3.5-5.0) g/dL Lipase 14 (8-78) U/L Urine Color Yellow Urine Appearance Clear Urine pH 5.5 (5.0-9.0) Ur Specific [place] 1.020 (1.005-1.025) Urine Protein Negative (Neg-Trace) mg/dL Urine Glucose (UA) Negative (Negative) mg/dL Urine Ketones Trace (Negative) mg/dL Urine Blood Trace H (Negative) Urine Nitrite Negative (Negative) Ur Leukocyte Esterase Small (1+) H (Negative) Urine RBC 3-5 H (0-2) /HPF Urine WBC 0-5 (0-5) /HPF Ur Squamous Epith Cells 0-2 (0-2) /HPF Calcium Oxalate Crystal Present Urine Bacteria None Seen (None Seen) Hyaline Casts 0-2 (0-2) /LPF COVID-19 (МАРИЯ) (Negative) COVID-19 Clin Com Influenza Type A (DIONTE) (Negative) Influenza Type B (DIONTE) (Negative) Influenza A & B Note 11/21/22 11/21/22 Range/Units 11:20 11:20 WBC (4.8-10.8) X10*3/uL RBC (4.20-5.50) X10*6/uL Hgb (12.0-16.0) g/dl Hct (37.0-47.0) % MCV (80.0-98.0) fL MCH (27.0-33.0) pg MCHC (31.0-35.0) g/dl RDW (11.0-16.0) % Plt Count (160-400) X10*3/uL MPV (9.4-12.3) fL Immature Gran % (Auto) (0.0-0.4) % Neut % (Auto) (45-73) % Lymph % (Auto) (20-40) % Williams % (Auto) (2-11) % Eos % (Auto) (0-4) % Baso % (Auto) (0-2) % Lymph # (Auto) (1.2-4.9) X10*3/uL Williams # (Auto) (0.1-1.2) X10*3/uL Eos # (Auto) (0.0-0.4) X10*3/uL Baso # (Auto) (0.0-0.2) X10*3/uL Abs Immat Gran (auto) (0.00-0.03) X10*3/uL Absolute Neuts (auto) (2.0-8.3) x10*3/uL Absolute Nucleated RBC (0.0-0.012) X10*3/uL Nucleated RBC % (auto) (0.0-0.2) /100WBC Sodium (135-145) mmol/L Potassium (3.3-5.1) mmol/L Chloride (96-108) mmol/L Carbon Dioxide (22-29) mmol/L Anion Gap (12-20) BUN (9-16) mg/dL Creatinine (0.5-1.4) mg/dL Estim Creat Clear Calc Estimated GFR Random Glucose (60-115) mg/dL Calcium (8.4-10.2) mg/dL Magnesium (1.6-2.6) mg/dL Total Bilirubin (0.0-1.0) mg/dL Direct Bilirubin (0.0-0.5) mg/dL AST (5-31) U/L ALT (0-31) U/L Alkaline Phosphatase (39-117) U/L Total Protein (6.5-8.0) g/dL Albumin (3.5-5.0) g/dL Lipase (8-78) U/L Urine Color Urine Appearance Urine pH (5.0-9.0) Ur Specific [place] (1.005-1.025) Urine Protein (Neg-Trace) mg/dL Urine Glucose (UA) (Negative) mg/dL Urine Ketones (Negative) mg/dL Urine Blood (Negative) Urine Nitrite (Negative) Ur Leukocyte Esterase (Negative) Urine RBC (0-2) /HPF Urine WBC (0-5) /HPF Ur Squamous Epith Cells (0-2) /HPF Calcium Oxalate Crystal Urine Bacteria (None Seen) Hyaline Casts (0-2) /LPF COVID-19 (МАРИЯ) Negative (Negative) COVID-19 Clin Com See Note Influenza Type A (DIONTE) Negative (Negative) Influenza Type B (DIONTE) Negative (Negative) Influenza A & B Note See Note Radiology Impression Discussion of test interpretation with radiology: I have reviewed the radiologist's reading. External Record Review External record reviewed: Inpatient record, Office record, Outpatient record, Prior outpatient labs, Prior outpatient radiology, Primary care record and Outside ED record Tests considered The following testing was considered but not selected: As above Discharge Plan Discharge Clinical Impression: Colitis Patient Disposition: Home, Self-Care Instructions: Colitis (ED) Additional Instructions: Your CT scan shows colitis Ceftin is an antibiotic please take as prescribed practice bland diet Take Tylenol Motrin as needed Follow-up with her doctor If symptoms persist or worsen return to the ED Prescriptions: New cefuroxime axetil 500 mg tablet 500 mg PO BID 7 Days Qty: 14 0RF No Action metronidazole 500 mg tablet 500 mg PO BID 7 Days Qty: 14 0RF loratadine 10 mg tablet 10 mg PO DAILY PRN (Reason: allergic symptoms) Qty: 90 1RF fluticasone propionate [Flonase Allergy Relief] 50 mcg/actuation spray,suspension 1 spray intranasal DAILY Qty: 16 1RF Rx Instructions: administer into each nostril polyethylene glycol 3350 [Purelax] 17 gram/dose powder PO cholecalciferol (vitamin D3) 25 mcg (1,000 unit) capsule PO DAILY albuterol sulfate 90 mcg/actuation Aerosol Powdr Breath Activated 2 inh INHALATION Q4-6H PRN (Reason: Wheezing) naproxen 500 mg tablet 500 mg PO BID PRN (Reason: pain) 10 Days Qty: 20 0RF cefuroxime axetil 250 mg tablet 250 mg PO Q12H 7 Days Qty: 14 0RF paroxetine HCl 20 mg tablet 20 mg PO QAM 90 Days Qty: 90 3RF Referrals: [facility] [place] [facility] [Provider Group] Shirley Madsen MD [Primary Care Provider] -
[2022-11-21 10:07] LABS: Bacteria Urine None Seen (None Seen); Calcium Oxalate Crystals Urine Present; Hyaline Casts Urine 0-2 /LPF (0-2); Squamous Epithelial Cell Urine 0-2 /HPF (0-2); UACC Culture Trigger YES; WBC Urine 0-5 /HPF (0-5)
[2022-11-21 10:23] LABS: MANUAL DIFF FLAG NO
[2022-11-21 10:25] LABS: Basophils Percent Auto 0.4 % (0-2); Eosinophils Absolute Auto 0.1 X10*3/uL (0.0-0.4); Eosinophils Percent Auto 1.4 % (0-4); Hematocrit 37.4 % (37.0-47.0); Hemoglobin 12.6 g/dl (12.0-16.0); Imm Gran Abs Auto 0.02 X10*3/uL (0.00-0.03); Imm Gran Pct Auto 0.3 % (0.0-0.4); Lymphocytes Percent Auto 12.3 % (20-40); Mean Corpuscular HGB Conc 33.7 g/dl (31.0-35.0); Mean Corpuscular Hemoglobin 31.5 pg (27.0-33.0); Mean Corpuscular Volume 93.5 fL (80.0-98.0); Mean Platelet Volume 10.8 fL (9.4-12.3); Monocytes Absolute Auto 0.7 X10*3/uL (0.1-1.2); Monocytes Percent Auto 8.9 % (2-11); Neutrophils Absolute Auto 6.2 x10*3/uL (2.0-8.3); Neutrophils Percent Auto 76.7 % (45-73); Platelet Count 221 X10*3/uL (160-400); Red Cell Distribution Width 12.4 % (11.0-16.0)
[2022-11-21] MEDS: Ketorolac Tromethamine 15 MG/ML VIAL IVPUSH (10:43)
[2022-11-21] MEDS: diphenhydrAMINE HCL 50 MG/ML VIAL 12.5 MG IVPUSH (10:44)
[2022-11-21] MEDS: Metoclopramide HCl 10 MG/2 ML VIAL IVPUSH (10:44)
[2022-11-21] MEDS: 0.9 % Sodium Chloride 1,000 ML 999 ML IV (10:44)
[2022-11-21 10:51] VITALS: BP 134/55; PULSE 69; RESP 18; TEMP 37.2; O2SAT 95
[2022-11-21 10:57] LABS: Alanine Aminotransferase 14 U/L (0-31); Albumin Level 3.7 g/dL (3.5-5.0); Alkaline Phosphatase 66 U/L (39-117); Anion Gap 12 (12-20); Aspartate Amino Transferase 15 U/L (5-31); Bilirubin Direct 0.2 mg/dL (0.0-0.5); Bilirubin Total 0.7 mg/dL (0.0-1.0); Blood Urea Nitrogen 11 mg/dL (9-16); Calcium 8.9 mg/dL (8.4-10.2); Carbon Dioxide 22 mmol/L (22-29); Chloride 107 mmol/L (96-108); Creatinine Clr Calc Pharmacy 85.2; Estimated Glomerular Filt Rate > 60; Glucose Random 107 mg/dL (60-115); Lipase 14 U/L (8-78); Potassium 3.9 mmol/L (3.3-5.1); Sodium 137 mmol/L (135-145); Total Protein 6.3 g/dL (6.5-8.0)
[2022-11-21 11:57] LABS: COVID-19 Test Negative (Negative); IDNOW Serial# BCCEAD1C
[2022-11-21 11:58] LABS: IDNOW Serial# 08D9AD1C; Influenza A Negative (Negative); Influenza B2 Negative (Negative)
[2022-11-21] MEDS: Butalb/Acetamin/Caff 50/325/40 TABLET 1 TAB PO (13:09)
[2022-11-21] MEDS: iohexoL 350 MG/ML 100 ML INFUS..BTL 85 ML IV (13:32)
[2022-11-21 13:38] VITALS: BP 122/53; PULSE 78; RESP 16; TEMP 36.9; O2SAT 100
[2022-11-21 14:33] VITALS: BP 133/52; PULSE 69; RESP 18; TEMP 37; O2SAT 97
--- NOTE | 2022-11-21 14:53 | PC.NURSE ---
pt is not at bedside at 1450. aware.
--- NOTE | 2022-11-21 15:04 | PC.NURSE ---
this rn made 2nd attempt to call pt which pt answered. pt stated that she personally d/c'd her iv and placed it in the hazardous bin. pt's d/c instructions will be mailed to her address on file. md prince.
== END 2022-11-21 15:07 | disposition home or self-care (01) ==
PROVIDERS: Physician Assistant; Emergency Provider Internal Medicine; PCP Internal Medicine
DX: K52.9 Noninfective gastroenteritis and colitis, unspecified (principal); R11.2 Nausea with vomiting, unspecified; Z20.822 Contact with and (suspected) exposure to COVID-19; Z87.891 Personal history of nicotine dependence
CPT/HCPCS: 36415; 74177; 80048; 80076; 81001; 83690; 83735; 85025; 87086; 87502; 87635; 96361; 96374; 96375; 99284; J1200; J1885; J2765; Q9967

== ENCOUNTER 2022-11-25 17:04 | Emergency (ER) | payer OTHER, SELFPAY ==
[2022-11-25 17:18] VITALS: BP 108/66; PULSE 101; RESP 20; TEMP 36.9; O2SAT 99; BMI 33.4
--- NOTE | 2022-11-25 17:18 | ED_ITS ---
HPI - General Adult General Chief complaint: General Medical Stated complaint: Severe cramps/blood in urine Time Seen by Provider: 11/25/22 21:26 Source: patient Mode of arrival: ambulatory Limitations: no limitations History of Present Illness HPI narrative: Patient with history of asthma was seen here on 11/21 for lower abdominal pain for last 1 week with discomfort with urination workup was negative showed slight inflammation around the sigmoid colon patient was given Ceftin urine culture was negative patient comes back as for last 2 3 days noticed more discomfort in suprapubic area specially when she urinates no frequency and feels the urine is darker color. No fever no chills no nausea no vomiting Related Data Home Medications Medication Instructions Recorded Confirmed albuterol sulfate 90 mcg/actuation 2 inh inhalation Q4-6H PRN Wheezing 04/15/20 06/05/22 breath activated powder inhaler cholecalciferol (vitamin D3) 25 cap PO DAILY 04/15/20 06/05/22 mcg (1,000 unit) capsule polyethylene glycol 3350 17 PO 04/15/20 06/05/22 gram/dose oral powder (Purelax) Previous Rx's Medication Instructions Recorded paroxetine HCl 20 mg tablet 20 mg PO QAM 90 days #90 tabs 02/17/22 cefuroxime axetil 250 mg tablet 250 mg PO Q12H 7 days #14 tabs 05/05/22 naproxen 500 mg tablet 500 mg PO BID PRN pain 10 days #20 05/05/22 tabs metronidazole 500 mg tablet 500 mg PO BID 7 days #14 tabs 05/11/22 loratadine 10 mg tablet 10 mg PO DAILY PRN allergic 06/12/22 symptoms #90 tabs fluticasone propionate 50 1 spray intranasal DAILY #16 grams 08/14/22 mcg/actuation nasal spray,suspension (Flonase Allergy Relief) cefuroxime axetil 500 mg tablet 500 mg PO BID 7 days #14 tabs 11/21/22 nitrofurantoin 100 mg PO BID 10 days #20 caps 11/25/22 monohydrate/macrocrystals 100 mg capsule (Macrobid) phenazopyridine 200 mg tablet 200 mg PO TID 2 days #6 tabs 11/25/22 (Pyridium) Allergies Allergy/AdvReac Type Severity Reaction Status Date / Time ciprofloxacin Allergy Unknown hives/edema Verified 06/05/22 12:22 citalopram [Celexa] Allergy Unknown unknown , Verified 06/05/22 12:22 ? itching sertraline [Zoloft] Allergy Unknown hives Verified 06/05/22 12:22 Sulfa (Sulfonamide Allergy Unknown edema, Verified 06/05/22 12:22 Antibiotics) itching Septra Allergy Unknown angioedema Uncoded 06/05/22 12:22 Review of Systems Review of Systems: Yes all other systems are reviewed and are negative [facility] Past Medical History Medical History Acute viral pharyngitis Allergic rhinitis Anxiety and depression COVID-19 vaccination declined History of uterine fibroid Mild intermittent asthma Obesity ANA on CPAP Osteoporosis Urticaria Surgical History Hx of colonoscopy Hx of dilation and curettage Hx of LASIK Hx of total hysterectomy Family History Family History Father Diabetes Gout Obese Mother Colon cancer H/O: hysterectomy Maternal Aunt Cancer Maternal Aunt Cancer Social History Social History Household Members: Friend(s) Housing: House Alcohol intake: current Alcohol intake frequency: holidays/special occasions only Patient Tobacco Use Status: Former Tobacco user Cigarettes Per Day: 2 e-Cigarette/Vaping Use: Never Used Second Hand Smoke Exposure: No Advance Directives: No Advance Directives Information Provided: No service: No Current occupational status: employed Cognitive needs: No Hearing needs: No Vision needs: Yes Physical Exam ED Vital Signs: Vital Signs - 24 hr 11/25/22 17:18 11/25/22 20:00 11/25/22 21:40 Temperature 98.4 F 98.4 F 98.7 F Pulse Rate 101 H 79 88 Respiratory Rate 20 16 16 Blood Pressure 108/66 115/45 L 113/54 L Pulse Oximetry 99 98 Oxygen Delivery Method Room Air Room Air BMI result Body Mass Index 33.4 Appearance: Alert. Oriented X3. No acute distress. Eyes: No pallor ENT: Pharynx normal. Oral Mucosa moist Neck: Normal inspection. Neck supple. CVS: Normal heart rate and rhythm. Pulses normal. Respiratory: No respiratory distress. Equal air entry bilateral, no wheezing/rales/rhonchi Abdomen: Soft mild suprapubic tenderness no rebound tenderness scars Bowel sounds are present, no mass palpable, no CVA tenderness Skin: Skin warm and dry. Normal skin color. Normal skin turgor. Extremities: No lower extremity edema. No calf tenderness Neuro: Oriented X 3. No motor deficit. Course Course Course Narrative: This is an RME: Additional HPI, ROS, PE not included below will be deferred to primary provider. 62-year-old female with a past medical history of allergic rhinitis, anxiety, depression, uterine fibroid, asthma, obesity, ANA, presenting to the ED complaining of lower abdominal pain/pressure x 1 week. Has had hematuria since yesterday, also reports urinary frequency. No dysuria. Was seen here on 11/21/22 was dx with colitis, was treated with cefuroxime which she has been taking without relief. CT abd and pelvis performed on 11/21 revealing mild mural thickening and pericolic fat stranding involving redundant sigmoid colon - likely colitis. No blood/black stool. Admits to having night sweats and chills. VSS. Plan: Labs, UA; will defer imaging at this time until seen by provider in main ER. Medical Decision Making Medical Decision Making MDM Narrative: Patient w/u showed increased wbc's in urine although no bacteria patient already taking Ceftin likely patient has partially treated UTI versus interstitial cystitis will give a course of Macrobid advised to follow-up with urologist for possible cystoscopy Lab Data [facility] Lab Attestation statement: I reviewed the patient's lab results. 11/25/22 18:06 11/25/22 18:06 Labs: Lab Results 11/25/22 11/25/22 11/25/22 Range/Units 18:06 18:06 20:25 WBC 10.6 (4.8-10.8) X10*3/uL RBC 3.96 L (4.20-5.50) X10*6/uL Hgb 12.4 (12.0-16.0) g/dl Hct 37.6 (37.0-47.0) % MCV 94.9 (80.0-98.0) fL MCH 31.3 (27.0-33.0) pg MCHC 33.0 (31.0-35.0) g/dl RDW 11.9 (11.0-16.0) % Plt Count 299 D (160-400) X10*3/uL MPV 11.0 (9.4-12.3) fL Immature Gran % (Auto) 0.3 (0.0-0.4) % Neut % (Auto) 78.7 H (45-73) % Lymph % (Auto) 9.8 L (20-40) % [place] % (Auto) 10.4 (2-11) % Eos % (Auto) 0.4 (0-4) % Baso % (Auto) 0.4 (0-2) % Lymph # (Auto) 1.0 L (1.2-4.9) X10*3/uL [place] # (Auto) 1.1 (0.1-1.2) X10*3/uL Eos # (Auto) 0.0 (0.0-0.4) X10*3/uL Baso # (Auto) 0.0 (0.0-0.2) X10*3/uL Abs Immat Gran (auto) 0.03 (0.00-0.03) X10*3/uL Absolute Neuts (auto) 8.4 H (2.0-8.3) x10*3/uL Absolute Nucleated RBC 0.000 (0.0-0.012) X10*3/uL Nucleated RBC % (auto) 0.0 (0.0-0.2) /100WBC Sodium 139 (135-145) mmol/L Potassium 4.0 (3.3-5.1) mmol/L Chloride 102 (96-108) mmol/L Carbon Dioxide 26 (22-29) mmol/L Anion Gap 15 (12-20) BUN 11 (9-16) mg/dL Creatinine 0.86 (0.5-1.4) mg/dL Estim Creat Clear Calc 78.3 Estimated GFR > 60 Random Glucose 120 H (60-115) mg/dL Calcium 9.1 (8.4-10.2) mg/dL Magnesium 2.1 (1.6-2.6) mg/dL Total Bilirubin 0.8 (0.0-1.0) mg/dL Direct Bilirubin 0.3 (0.0-0.5) mg/dL AST 22 (5-31) U/L ALT 24 (0-31) U/L Alkaline Phosphatase 127 H (39-117) U/L Total Protein 6.5 (6.5-8.0) g/dL Albumin 3.7 (3.5-5.0) g/dL Lipase 13 (8-78) U/L Urine Color DK YELLOW Urine Appearance Hazy Urine pH 6.0 (5.0-9.0) Ur Specific [place] >= 1.030 H (1.005-1.025) Urine Protein 100 (2+) H (Neg-Trace) mg/dL Urine Glucose (UA) Negative (Negative) mg/dL Urine Ketones 40 (Negative) mg/dL Urine Blood Trace (Negative) Urine Nitrite Negative (Negative) Ur Leukocyte Esterase Trace H (Negative) Urine RBC 11-20 H (0-2) /HPF Urine WBC >50 H (0-5) /HPF Ur Squamous Epith Cells >20 (0-2) /HPF Urine Bacteria None Seen (None Seen) Hyaline Casts >20 (0-2) /LPF Discharge Plan Discharge Clinical Impression: Acute cystitis Patient Disposition: Home, Self-Care Instructions: Urinary Tract Infection in Women (ED) Additional Instructions: Is not clear whether you have UTI possibly you have interstitial cystitis Will give a course of antibiotic for now Follow-up with urologist if symptom continues Prescriptions: New nitrofurantoin monohyd/m-cryst [Macrobid] 100 mg capsule 100 mg PO BID 10 Days Qty: 20 0RF Rx Instructions: must administer with a meal/food phenazopyridine [Pyridium] 200 mg tablet 200 mg PO TID 2 Days Qty: 6 0RF No Action metronidazole 500 mg tablet 500 mg PO BID 7 Days Qty: 14 0RF loratadine 10 mg tablet 10 mg PO DAILY PRN (Reason: allergic symptoms) Qty: 90 1RF fluticasone propionate [Flonase Allergy Relief] 50 mcg/actuation spray,suspension 1 spray intranasal DAILY Qty: 16 1RF Rx Instructions: administer into each nostril polyethylene glycol 3350 [Purelax] 17 gram/dose powder PO cholecalciferol (vitamin D3) 25 mcg (1,000 unit) capsule PO DAILY albuterol sulfate 90 mcg/actuation Aerosol Powdr Breath Activated 2 inh INHALATION Q4-6H PRN (Reason: Wheezing) naproxen 500 mg tablet 500 mg PO BID PRN (Reason: pain) 10 Days Qty: 20 0RF cefuroxime axetil 250 mg tablet 250 mg PO Q12H 7 Days Qty: 14 0RF cefuroxime axetil 500 mg tablet 500 mg PO BID 7 Days Qty: 14 0RF paroxetine HCl 20 mg tablet 20 mg PO QAM 90 Days Qty: 90 3RF Referrals: Augusto Paez MD [Physician] - 2 weeks
[2022-11-25 18:09] LABS: MANUAL DIFF FLAG NO
[2022-11-25 18:29] LABS: Alanine Aminotransferase 24 U/L (0-31); Albumin Level 3.7 g/dL (3.5-5.0); Alkaline Phosphatase 127 U/L (39-117); Anion Gap 15 (12-20); Aspartate Amino Transferase 22 U/L (5-31); Bilirubin Direct 0.3 mg/dL (0.0-0.5); Bilirubin Total 0.8 mg/dL (0.0-1.0); Blood Urea Nitrogen 11 mg/dL (9-16); Calcium 9.1 mg/dL (8.4-10.2); Carbon Dioxide 26 mmol/L (22-29); Chloride 102 mmol/L (96-108); Creatinine Clr Calc Pharmacy 78.3; Estimated Glomerular Filt Rate > 60; Glucose Random 120 mg/dL (60-115); Lipase 13 U/L (8-78); Magnesium 2.1 mg/dL (1.6-2.6); Sodium 139 mmol/L (135-145); Total Protein 6.5 g/dL (6.5-8.0)
[2022-11-25 18:33] LABS: Basophils Percent Auto 0.4 % (0-2); Eosinophils Percent Auto 0.4 % (0-4); Hematocrit 37.6 % (37.0-47.0); Hemoglobin 12.4 g/dl (12.0-16.0); Imm Gran Abs Auto 0.03 X10*3/uL (0.00-0.03); Imm Gran Pct Auto 0.3 % (0.0-0.4); Lymphocytes Percent Auto 9.8 % (20-40); Mean Corpuscular Hemoglobin 31.3 pg (27.0-33.0); Mean Corpuscular Volume 94.9 fL (80.0-98.0); Monocytes Absolute Auto 1.1 X10*3/uL (0.1-1.2); Monocytes Percent Auto 10.4 % (2-11); Neutrophils Absolute Auto 8.4 x10*3/uL (2.0-8.3); Neutrophils Percent Auto 78.7 % (45-73); Platelet Count 299 X10*3/uL (160-400); Red Blood Count 3.96 X10*6/uL (4.20-5.50); Red Cell Distribution Width 11.9 % (11.0-16.0); White Blood Count 10.6 X10*3/uL (4.8-10.8)
[2022-11-25 20:00] VITALS: BP 115/45; PULSE 79; RESP 16; TEMP 36.9
--- NOTE | 2022-11-25 20:11 | MHC.EDTECH ---
this pct assumed care of pt at 1999 ,vitals sign ,waiting to collect urine sample .
--- NOTE | 2022-11-25 20:26 | MHC.EDTECH ---
PATIENT URINE SAMPLE COLLECTED AND SENT TO0 LAB .
[2022-11-25 20:32] LABS: Appearance Urine Hazy; Color Urine DK YELLOW; Glucose Urine UA Negative (Negative); Leukocyte Esterase Urine Trace (Negative); Specific Gravity - Urine >= 1.030 (1.005-1.025); UMIC TRIGGER UACC YES; Urine Blood Trace (Negative); Urine Ketones 40 mg/dL (Negative); Urine Protein 100 (2+) mg/dL (Neg-Trace)
[2022-11-25 20:45] LABS: Bacteria Urine None Seen (None Seen); Hyaline Casts Urine >20 /LPF (0-2); Nitrite Urine Negative (Negative); Squamous Epithelial Cell Urine >20 /HPF (0-2); WBC Urine >50 /HPF (0-5)
[2022-11-25 20:46] LABS: UACC Culture Trigger YES
[2022-11-25 21:40] VITALS: BP 113/54; PULSE 88; RESP 16; TEMP 37.1; O2SAT 98
[2022-11-25] MEDS: Phenazopyridine HCL 200 MG TABLET PO (22:07)
[2022-11-25] MEDS: Nitrofurantoin Monohyd/M-Cryst 100 MG CAPSULE PO (22:07)
== END 2022-11-25 22:22 | disposition home or self-care (01) ==
PROVIDERS: Physician Assistant Medical; Emergency Provider Internal Medicine; PCP Internal Medicine
DX: N30.00 Acute cystitis without hematuria (principal); Z79.899 Other long term (current) drug therapy; Z87.891 Personal history of nicotine dependence
CPT/HCPCS: 36415; 80048; 80076; 81001; 83690; 83735; 85025; 87086; 99283; 99284

== ENCOUNTER 2024-02-01 10:26 | Outpatient (AMB) | payer OTHER, SELFPAY ==
[2024-02-01 10:45] VITALS: BP 126/78; PULSE 93; O2SAT 98; BMI 30.2
--- NOTE | 2024-02-01 10:45 | A.OFFPC_ITS ---
Vital Signs 02/01/24 10:45 Height 5 ft 6 in Weight 187 lb 6 oz BMI 30.2 BP 126/78 Blood Pressure Location Rt brachial Position Sitting Pulse 93 Pulse Source Pulse Oximeter Pulse Oximetry (%) 98 Oxygen Delivery Method Room Air Intake Visit Reasons: discuss antidepressant med Intake Note: Pt is here today to discuss antidepressant medication. Allergies ciprofloxacin Allergy (Unknown, Verified 02/04/24 19:02) hives/edema citalopram [Celexa] Allergy (Unknown, Verified 02/04/24 19:02) unknown , ? itching sertraline [Zoloft] Allergy (Unknown, Verified 02/04/24 19:02) hives Sulfa (Sulfonamide Antibiotics) Allergy (Unknown, Verified 02/04/24 19:02) edema, itching sulfamethoxazole [From Septra] Allergy (Verified 02/04/24 19:02) Angioedema trimethoprim [From Febra] Allergy (Verified 02/04/24 19:02) Angioedema Medication List - Last Reconciled 02/01/24 by Shirley Madsen MD albuterol sulfate 90 mcg/actuation 2 inhalations inhalation Q4-6H PRN cholecalciferol (vitamin D3) caps PO DAILY fluticasone propionate 50 mcg/actuation (Flonase Allergy Relief) 1 spray intranasal DAILY loratadine 10 mg PO DAILY PRN paroxetine HCl 20 mg PO QAM 90 days Tobacco use date assessed: 02/01/24 Dental Screening Dental Screen Date: 02/01/24 Did you have a dental visit in the last 12 months?: No Did you have a dental problem in the last 6 months where you did not have access to dental care?: No Was dental information given to patient?: Patient has dentist HPI discuss antidepressant med HPI Details 63-year-old lady with depression with an xiety currently on paroxetine 20 mg daily, here today for follow-up. Patient states that she is unable to see her previous psychiatrist, and feels like her paroxetine is not helping anymore, would like to be taken off this and requests referral to a different psychiatrist. Mood has been low, and has been getting frequent anxiety attacks [facility], [facility] Medical History (Updated 02/01/24 @ 10:53 by Shirley Madsen MD) Depression with anxiety Acute viral pharyngitis COVID-19 vaccination declined Osteoporosis Anxiety and depression History of uterine fibroid Mild intermittent asthma Obesity Urticaria Allergic rhinitis ANA on CPAP Surgical History Hx of LASIK Hx of total hysterectomy Hx of dilation and curettage Hx of colonoscopy Family History Father Diabetes Gout Obese Mother Colon cancer H/O: hysterectomy Maternal Aunt Cancer Maternal Aunt Cancer Social History Household Members: Friend(s) Housing: House Alcohol intake: current Alcohol intake frequency: holidays/special occasions only Alcohol type: beer, wine and hard liquor Patient Tobacco Use Status: Former Tobacco user Cigarettes Per Day: 2 e-Cigarette/Vaping Use: Never Used Second Hand Smoke Exposure: No service: No Current occupational status: employed Cognitive needs: No Hearing needs: No Vision needs: Yes Questionnaire PHQ-9 Over the last 2 weeks, how often have you been bothered by any of the following problems? 1. Little interest or pleasure in doing things: nearly every day 2. Feeling down, depressed, or hopeless: nearly every day 3. Trouble falling or staying asleep, or sleeping too much: nearly every day 4. Feeling tired or having little energy: nearly every day 5. Poor appetite or overeating: not at all 6. Feeling bad about yourself - or that you are a failure or have let yourself or your family down: nearly every day 7. Trouble concentrating on things, such as reading the newspaper or watching television: nearly every day 8. Moving or speaking so slowly that other people could have noticed. Or the opposite - being so fidgety or restless that you have been moving around a lot more than usual: several days 9. Thoughts that you would be better off or of hurting yourself in some way: not at all Total score: 19 Depression Screening Interpretation: Positive Depression Screening Follow-up: Existing condition, In treatment and Community Mental Health Worker F/U Depression Screening Done: Yes 16439 - PHQ-9 Billing: Yes Source: Developed by Drs. Martinez Marie, Velma Colon, Kemal Valadez and colleagues, with an educational ev from [employer]. Thrive Questionnaire Date Thrive assessed: 02/01/24 I am a: Patient What is your living situation today?: I have a steady place to live Within the past 12 months, did the food you bought not last and you didn't have the money to get more?: I choose not to answer this question Within the past 12 months, did you worry whether your food would run out before you got money to buy more?: I choose not to answer this question Do you have trouble paying for medicines?: I choose not to answer this question Do you have trouble getting transportation to medical appointments?: I choose not to answer this question Do you have trouble paying your heating and electricity bill?: I choose not to answer this question Do you have trouble taking care of your child, family member or friend?: I choose not to answer this question Do you have trouble with day-to-day activities such as bathing, preparing meals, shopping, managing finances, etc.?: Yes Are you currently unemployed and looking for a job?: I choose not to answer this question Are you interested in more education?: No Please select the resources that you would like help with: Food Currently or been in a relationship where the following occur: I choose not to answer THRIVE Score: 0 AUDIT C Alcohol Use Questionnaire (AUDIT-C) 1. How often do you have a drink containing alcohol?: 2-4 times a month 2. How many drinks containing alcohol do you have on a typical day when you are drinking?: 1 or 2 3. How often do you have six or more drinks on one occasion?: Never Total Score: 2 Score Reviewed/Action Taken: Yes MELA-7 AMB Questionnaire MELA-7 Date MELA - 7 assessed: 02/01/24 Feeling nervous, anxious, or on edge: 1 = Several days Not being able to stop or control worryin = Several days Worrying too much about different things: 1 = Several days Trouble relaxin = Several days Being so restless that it is hard to sit still: 0 = Not at all Becoming easily annoyed or irritable: 0 = Not at all Feeling afraid as if something awful might happen: 1 = Several days Total MELA-7 score (0-4 normal; 5-9 mild; 10-14 moderate; 15-21 severe): 5 Source: Developed by Drs. Martinez Marie, Velma Colon, Kemal Valadez and colleagues, with an educational ev from [employer]. MELA-7 Assessment Billing MELA-7 Assessment Tool: MELA-7 Assessment 29738 Review of Systems Const Reports as per HPI, Denies chills, Denies fatigue, Denies fever(s) and Reports poor appetite ENT Reports no additional complaints Card Reports no additional complaints Resp Reports no additional complaints GI Reports as per HPI, Denies melena, Denies hematochezia, Reports constipation, Reports excessive flatus and Reports loose stools Denies urinary frequency, Denies difficulty voiding, Denies dysuria, Denies urinary incontinence and Denies vaginal discharge Musc Reports no additional complaints Psych Reports as per HPI Endo Denies fatigue Ervin/Lymph Reports no additional complaints Physical exam (Primary Care) Vital Signs: Last Vital Signs Pulse 93 02/01/24 10:45 BP 126/78 02/01/24 10:45 Pulse Ox 98 02/01/24 10:45 Oxygen Delivery Method Room Air 02/01/24 10:45 BMI result Body Mass Index 30.2 Tobacco/Smoking Status: Tobacco use Status Tobacco use date assessed 02/01/24 02/01/24 10:50 Patient Tobacco Use Status Former Tobacco user 02/01/24 10:50 e-Cigarette/Vaping Use Never Used 02/01/24 10:50 PHQ-9: PHQ-9 Score PHQ-9: Total score 19 02/01/24 10:53 Depression Screening Interpretation: Positive Depression Screening Follow-up: Existing condition, In treatment and Community Mental Health Worker F/U Thrive Assessment: Date of Thrive Assessment Date Thrive assessed 02/01/24 02/01/24 10:50 Currently or been in a relationship where the following occur: I choose not to answer Const General: no acute distress and alert Nutritional Appearance: obese Orientation/consciousness: patient oriented x3 HENMT Mouth: Normal oral and palatal mucosa present and moist mucous membranes Neck Neck: Yes full ROM, Yes no lymphadenopathy and Yes supple Resp Effort & Inspection: normal respiratory effort and able to speak in complete sentences Auscultation: clear to auscultation bilaterally Cardio Rate: regular rate Rhythm: regular rhythm Heart sounds: S1 normal heart sound present and S2 normal heart sound present GI Inspection: Yes obesity Palpation (GI): Soft to palpation and no masses General: Yes no CVA tenderness Back/Spine/Pelvis Back: no CVA tenderness Neuro General: patient oriented x3 Extrem General: Yes full ROM, Yes no joint enlargement, Yes no clubbing, cyanosis or edema and Yes normal gait Psych Appearance: grossly normal and well kempt Mental Status: mental status grossly normal Speech and movement: Normal speech and movement present Affect: normal affect and Sad affect present Attitude: cooperative Thought process: Normal thought process present Thought content: Normal thought content present Assessment and Plan Assessment & Plan (1) Depression with anxiety: Code(s): F41.8 - Other specified anxiety disorders Plan: Will slowly taper off paroxetine, advised to start taking 10 mg once a day for 1 week and then decrease to 5 mg once a day on the 2nd week until she gets seen by Psychiatry at [place]. Referred to outpatient psychiatry at [facility] for bridging until she can be seen at [facility] or service net for continued. treatment, referred to Leydi nerique mental health coordinator for assistance in getting in to these appointments for therapy and psychiatry Orders: Referrals Psychiatry Outpatient Consultation Service F41.8 - Other specified anxiety disorders Coding Level of Care Code Est Pt Level 4 (56243) Diagnoses Depression with anxiety F41.8 Additional Codes MELA-7 Assessment Billing - MELA-7 Assessment Tool: MELA-7 Assessment 16358 ([id number])
== END 2024-02-01 13:11 | disposition home or self-care (01) ==
PROVIDERS: PCP Internal Medicine; Visit Provider Internal Medicine
DX: F41.8 Other specified anxiety disorders (principal)
CPT/HCPCS: 96127; 99214

== ENCOUNTER 2024-03-03 12:00 | Outpatient (AMB) | payer OTHER, SELFPAY ==
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
== END 2024-03-03 13:04 | disposition home or self-care (01) ==
LOC: HO.HOP 12:00
PROVIDERS: PCP Internal Medicine; Visit Provider Clinical Nurse Specialist Psychiatric/Mental Health
DX: F33.1 Major depressive disorder, recurrent, moderate (principal)
CPT/HCPCS: 90792

== ENCOUNTER → 2024-03-03 12:00 | Outpatient (BNVA) | payer OTHER, SELFPAY | PROVIDERS: PCP Internal Medicine; Visit Provider Clinical Nurse Specialist Psychiatric/Mental Health | DX: F33.1 Major depressive disorder, recurrent, moderate (principal); Z71.89 Other specified counseling | CPT/HCPCS: 90792 ==

== ENCOUNTER 2024-03-27 11:49 | Outpatient (AMB) | payer OTHER, SELFPAY ==
--- NOTE | 2024-03-27 12:15 | MHC.PC.OV ---
Vital Signs 03/27/24 12:17 Height 5 ft 6 in Weight 185 lb BMI 29.9 BP 100/72 Blood Pressure Location Rt brachial Position Sitting Pulse 81 Pulse Source Pulse Oximeter Pulse Oximetry (%) 99 Oxygen Delivery Method Room Air Intake Visit Reasons: PE Intake Note: Pt is here today for her PE Allergies ciprofloxacin Allergy (Unknown, Verified 03/27/24 12:31) hives/edema citalopram [Celexa] Allergy (Unknown, Verified 03/27/24 12:31) unknown , ? itching sertraline [Zoloft] Allergy (Unknown, Verified 03/27/24 12:31) hives Sulfa (Sulfonamide Antibiotics) Allergy (Unknown, Verified 03/27/24 12:31) edema, itching sulfamethoxazole [From Septra] Allergy (Verified 03/27/24 12:31) Angioedema trimethoprim [From Septra] Allergy (Verified 03/27/24 12:31) Angioedema Medication List - Last Reconciled 03/27/24 by Shirley Madsen MD albuterol sulfate 90 mcg/actuation 2 inhalations inhalation Q4-6H PRN cholecalciferol (vitamin D3) caps PO DAILY fluoxetine 20 mg orally take 1/2 tablet daily x 1 week then take 1 tablet daily; fluticasone propionate 50 mcg/actuation (Flonase Allergy Relief) 1 spray intranasal DAILY loratadine 10 mg PO DAILY PRN Tobacco use date assessed: 03/27/24 Dental Screening Dental Screen Date: 03/27/24 Did you have a dental visit in the last 12 months?: No Did you have a dental problem in the last 6 months where you did not have access to dental care?: No Was dental information given to patient?: Patient has dentist HPI PE HPI Details 63-year-old lady here today for physical exam she has history of major depression, stable controlled on fluoxetine . Currently on albuterol inhaler, which she uses as needed for mild intermittent asthma. \ she had a screening colonoscopy in [address] Camacho which came back with normal results. Recently underwent sigmoidoscopy at [facility] 12/2023, done by Dr. Mckenzie for acute diverticulitis status post sigmoid colon resection and loop ileostomy. She is overdue for a screening mammogram, last done in 2020. [facility] Medical History (Updated 04/10/24 @ 04:10 by Shirley Madsen MD) Environmental and seasonal allergies Anxiety and depression Acute viral pharyngitis COVID-19 vaccination declined Osteoporosis History of uterine fibroid Mild intermittent asthma Obesity Urticaria Allergic rhinitis ANA on CPAP Surgical History (Updated 03/27/24 @ 12:44 by Shirley Madsen MD) History of partial hysterectomy Hx of LASIK Hx of dilation and curettage Hx of colonoscopy Family History Father Diabetes Gout Obese Mother Colon cancer H/O: hysterectomy Maternal Aunt Cancer Maternal Aunt Cancer Social History Household Members: Friend(s) Housing: House Alcohol intake: current Alcohol intake frequency: holidays/special occasions only Alcohol type: beer, wine and hard liquor Patient Tobacco Use Status: Former Tobacco user Cigarettes Per Day: 2 e-Cigarette/Vaping Use: Never Used Second Hand Smoke Exposure: No service: No Current occupational status: employed Cognitive needs: No Hearing needs: No Vision needs: Yes Questionnaire Thrive Questionnaire Date Thrive assessed: 03/27/24 I am a: Patient What is your living situation today?: I have a steady place to live Within the past 12 months, did the food you bought not last and you didn't have the money to get more?: I choose not to answer this question Within the past 12 months, did you worry whether your food would run out before you got money to buy more?: I choose not to answer this question Do you have trouble paying for medicines?: I choose not to answer this question Do you have trouble getting transportation to medical appointments?: I choose not to answer this question Do you have trouble paying your heating and electricity bill?: I choose not to answer this question Do you have trouble taking care of your child, family member or friend?: I choose not to answer this question Do you have trouble with day-to-day activities such as bathing, preparing meals, shopping, managing finances, etc.?: Yes Are you currently unemployed and looking for a job?: I choose not to answer this question Are you interested in more education?: No Please select the resources that you would like help with: Food Currently or been in a relationship where the following occur: I choose not to answer THRIVE Score: 0 AUDIT C Alcohol Use Questionnaire (AUDIT-C) 2. How many drinks containing alcohol do you have on a typical day when you are drinking?: 1 or 2 3. How often do you have six or more drinks on one occasion?: Less than monthly Total Score: 1 MELA-7 AMB Questionnaire MELA-7 Date MELA - 7 assessed: 03/27/24 Feeling nervous, anxious, or on edge: 1 = Several days Not being able to stop or control worryin = Several days Worrying too much about different things: 2 = More than half the days Trouble relaxin = Several days Being so restless that it is hard to sit still: 1 = Several days Becoming easily annoyed or irritable: 1 = Several days Feeling afraid as if something awful might happen: 1 = Several days Total MELA-7 score (0-4 normal; 5-9 mild; 10-14 moderate; 15-21 severe): 8 Source: Developed by Drs. Martinez Marie, Velma Colon, Kemal Valadez and colleagues, with an educational ev from [employer]. MELA-7 Assessment Billing MELA-7 Assessment Tool: MELA-7 Assessment 44258 Review of Systems Const Denies chills, Denies fatigue, Denies fever(s) and Reports poor appetite Eyes Details: Goes to [facility] for her routine eye exam ENT Reports no additional complaints Card Reports no additional complaints Resp Reports no additional complaints GI Denies melena, Denies hematochezia and Reports constipation Denies urinary frequency, Denies difficulty voiding, Denies nipple discharge, Denies dysuria, Denies urinary incontinence and Denies vaginal discharge Musc Reports no additional complaints Skin/Breast Denies breast swelling, Denies breast pain, Denies breast mass, Denies nipple discharge and Denies rash Neuro Reports no additional complaints Psych Reports as per HPI Endo Denies fatigue Ervin/Lymph Reports no additional complaints Aller/Immun Reports seasonal rhinorrhea Physical exam (Primary Care) Vital Signs: Last Vital Signs Pulse 81 03/27/24 12:17 BP 100/72 03/27/24 12:17 Pulse Ox 99 03/27/24 12:17 Oxygen Delivery Method Room Air 03/27/24 12:17 BMI result Body Mass Index 29.9 Tobacco/Smoking Status: Tobacco use Status Tobacco use date assessed 03/27/24 03/27/24 12:18 Patient Tobacco Use Status Former Tobacco user 03/27/24 12:18 e-Cigarette/Vaping Use Never Used 03/27/24 12:18 Thrive Assessment: Date of Thrive Assessment Date Thrive assessed 03/27/24 03/27/24 12:18 Currently or been in a relationship where the following occur: I choose not to answer Const General: no acute distress and alert Nutritional Appearance: obese Orientation/consciousness: patient oriented x3 HENMT Mouth: Normal oral and palatal mucosa present and moist mucous membranes Eyes General: appearance normal, both eyes and all related structures Neck Neck: Yes full ROM, Yes no lymphadenopathy and Yes supple Chest Chest palpation & inspection: normal inspection of the chest Breast/axilla palpation: normal palpation of the breasts Resp Effort & Inspection: normal respiratory effort and able to speak in complete sentences Auscultation: clear to auscultation bilaterally Cardio Rate: regular rate Rhythm: regular rhythm Heart sounds: S1 normal heart sound present and S2 normal heart sound present GI Inspection: Yes obesity Palpation (GI): Soft to palpation and no masses General: Yes no CVA tenderness Back/Spine/Pelvis Back: no CVA tenderness Skin General skin exam: no rashes or lesions noted Neuro General: patient oriented x3 Extrem General: Yes full ROM, Yes no joint enlargement, Yes no clubbing, cyanosis or edema and Yes normal gait Psych Appearance: grossly normal and well kempt Mental Status: mental status grossly normal Speech and movement: Normal speech and movement present Affect: normal affect and Sad affect present Attitude: cooperative Thought process: Normal thought process present Thought content: Normal thought content present Coding Level of Care Code Est Pt Prev Care 40-64y(51633) Diagnoses Annual visit for general adult medical examination with abnormal findings Z00.01 Depression with anxiety F41.8 Osteoporosis M81.0 Osteoporosis type: age-related Anxiety and depression F41.9; F32.A Mild intermittent asthma without complication J45.20 Asthma complication type: uncomplicated Environmental and seasonal allergies J30.89 COVID-19 vaccination declined Z28.21 Additional Codes MELA-7 Assessment Billing - MELA-7 Assessment Tool: MELA-7 Assessment [id number] ([id number])
[2024-03-27 12:17] VITALS: BP 100/72; PULSE 81; O2SAT 99; BMI 29.9
== END 2024-03-27 13:10 | disposition home or self-care (01) ==
PROVIDERS: PCP Internal Medicine; Visit Provider Internal Medicine
DX: Z00.01 Encounter for general adult medical examination with abnormal findings (principal); F41.8 Other specified anxiety disorders; M81.0 Age-related osteoporosis without current pathological fracture; F41.9 Anxiety disorder, unspecified; F32.A Depression, unspecified; J45.20 Mild intermittent asthma, uncomplicated; J30.89 Other allergic rhinitis; Z28.21 Immunization not carried out because of patient refusal

== ENCOUNTER → 2024-03-27 11:49 | Outpatient (BNVA) | payer OTHER, SELFPAY | PROVIDERS: PCP Internal Medicine; Visit Provider Internal Medicine | DX: Z00.01 Encounter for general adult medical examination with abnormal findings (principal); F41.8 Other specified anxiety disorders; M81.0 Age-related osteoporosis without current pathological fracture; F41.9 Anxiety disorder, unspecified; F32.A Depression, unspecified; J45.20 Mild intermittent asthma, uncomplicated; J30.89 Other allergic rhinitis; Z28.21 Immunization not carried out because of patient refusal | CPT/HCPCS: 96127; 99396 ==

== ENCOUNTER 2024-04-04 14:02 | Outpatient (AMB) | payer OTHER, SELFPAY ==
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
== END 2024-04-04 15:10 | disposition home or self-care (01) ==
LOC: HO.HOP 14:02
PROVIDERS: PCP Internal Medicine; Visit Provider Clinical Nurse Specialist Psychiatric/Mental Health
DX: F41.1 Generalized anxiety disorder (principal); F34.1 Dysthymic disorder
CPT/HCPCS: 90833; 99214

== ENCOUNTER → 2024-04-04 14:02 | Outpatient (BNVA) | payer OTHER, SELFPAY | PROVIDERS: PCP Internal Medicine; Visit Provider Clinical Nurse Specialist Psychiatric/Mental Health | DX: F41.1 Generalized anxiety disorder (principal); F34.1 Dysthymic disorder | CPT/HCPCS: 99212 ==

== ENCOUNTER 2024-04-13 07:31 | Outpatient (REF) | payer OTHER, SELFPAY ==
[2024-04-13 11:05] LABS: Alanine Aminotransferase 13 U/L (0-31); Anion Gap 12 (12-20); Aspartate Amino Transferase 15 U/L (5-31); Blood Urea Nitrogen 14 mg/dL (9-16); Calcium 9.5 mg/dL (8.4-10.2); Carbon Dioxide 27 mmol/L (22-29); Chloride 105 mmol/L (96-108); Cholesterol 217 mg/dL (<200); Estimated Glomerular Filt Rate > 60; Glucose Fasting 98 mg/dL (60-99); HDL Cholesterol 64 mg/dL (>40); LDL Cholesterol Calculated 138 mg/dL (<100); Potassium 3.7 mmol/L (3.3-5.1); Sodium 140 mmol/L (135-145); Triglycerides 75 mg/dL (<150)
[2024-04-13 11:26] LABS: Vitamin D 25-OH Total 48.3 ng/mL (>30)
== END 2024-04-13 07:32 | disposition home or self-care (01) ==
LOC: HO.HMGCLDS 07:31
PROVIDERS: PCP Internal Medicine; Visit Provider Internal Medicine
DX: Z00.01 Encounter for general adult medical examination with abnormal findings (principal); Z68.33 Body mass index [BMI] 33.0-33.9, adult; E66.09 Other obesity due to excess calories; M81.0 Age-related osteoporosis without current pathological fracture
CPT/HCPCS: 36415; 80048; 80061; 82306; 84450; 84460

== ENCOUNTER 2024-05-24 12:16 | Outpatient (AMB) | payer OTHER, SELFPAY ==
[2024-05-24 12:28] VITALS: BP 92/60; PULSE 78; O2SAT 99; BMI 29.7
--- NOTE | 2024-05-24 12:28 | MHC.PC.OV ---
Vital Signs 05/24/24 12:28 Height 5 ft 6 in Weight 184 lb BMI 29.7 BP 92/60 Blood Pressure Location Lt brachial Position Sitting Pulse 78 Pulse Source Pulse Oximeter Pulse Oximetry (%) 99 Oxygen Delivery Method Room Air Intake Visit Reasons: ?intermitt palpitation, no cp/lightheadiness Intake Note: Pt is here today c/o intermitt palpitation Allergies ciprofloxacin Allergy (Unknown, Verified 05/28/24 17:47) hives/edema citalopram [Celexa] Allergy (Unknown, Verified 05/28/24 17:47) unknown , ? itching sertraline [Zoloft] Allergy (Unknown, Verified 05/28/24 17:47) hives Sulfa (Sulfonamide Antibiotics) Allergy (Unknown, Verified 05/28/24 17:47) edema, itching sulfamethoxazole [From Septra] Allergy (Verified 05/28/24 17:47) Angioedema trimethoprim [From Febra] Allergy (Verified 05/28/24 17:47) Angioedema Medication List - Last Reconciled 05/28/24 by Shirley Madsen MD albuterol sulfate 90 mcg/actuation 2 inhalations inhalation Q4-6H PRN cholecalciferol (vitamin D3) caps PO DAILY fluoxetine 20 mg PO QAM fluticasone propionate 50 mcg/actuation (Flonase Allergy Relief) 1 spray intranasal DAILY loratadine 10 mg PO DAILY PRN Tobacco use date assessed: 05/24/24 Dental Screening Dental Screen Date: 05/24/24 Did you have a dental visit in the last 12 months?: Yes Did you have a dental problem in the last 6 months where you did not have access to dental care?: Yes Was dental information given to patient?: Patient has dentist HPI ?intermitt palpitation, no cp/lightheadiness HPI Details 63-year-old lady here today complaining of having intermittent episodes of palpitations which last for several seconds and resolved spontaneously. This was not accompanied by any chest pain, no lightheadedness, no nausea vomiting or gait imbalance. No history of falls. Patient present is asymptomatic [facility] Medical History (Updated 05/24/24 @ 13:17 by Shirley Madsen MD) Intermittent palpitations Environmental and seasonal allergies Anxiety and depression Acute viral pharyngitis COVID-19 vaccination declined Osteoporosis History of uterine fibroid Mild intermittent asthma Obesity Urticaria Allergic rhinitis ANA on CPAP Surgical History History of partial hysterectomy Hx of LASIK Hx of dilation and curettage Hx of colonoscopy Family History Father Diabetes Gout Obese Mother Colon cancer H/O: hysterectomy Maternal Aunt Cancer Maternal Aunt Cancer Social History Household Members: Friend(s) Housing: House Alcohol intake: current Alcohol intake frequency: holidays/special occasions only Alcohol type: beer, wine and hard liquor Patient Tobacco Use Status: Former Tobacco user Cigarettes Per Day: 2 e-Cigarette/Vaping Use: Never Used Second Hand Smoke Exposure: No service: No Current occupational status: employed Cognitive needs: No Hearing needs: No Vision needs: Yes Questionnaire Thrive Questionnaire Date Thrive assessed: 02/01/24 I am a: Patient What is your living situation today?: I have a steady place to live Within the past 12 months, did the food you bought not last and you didn't have the money to get more?: I choose not to answer this question Within the past 12 months, did you worry whether your food would run out before you got money to buy more?: I choose not to answer this question Do you have trouble paying for medicines?: I choose not to answer this question Do you have trouble getting transportation to medical appointments?: I choose not to answer this question Do you have trouble paying your heating and electricity bill?: I choose not to answer this question Do you have trouble taking care of your child, family member or friend?: I choose not to answer this question Do you have trouble with day-to-day activities such as bathing, preparing meals, shopping, managing finances, etc.?: Yes Are you currently unemployed and looking for a job?: I choose not to answer this question Are you interested in more education?: No Please select the resources that you would like help with: Food Currently or been in a relationship where the following occur: I choose not to answer THRIVE Score: 0 MELA-7 AMB Questionnaire MELA-7 Date MELA - 7 assessed: 03/27/24 Source: Developed by Drs. Martinez Marie, Velma Colon, Kemal Valadez and colleagues, with an educational ev from [employer]. Review of Systems Const All systems reviewed & are unremarkable except as noted in HPI and below Physical exam (Primary Care) Vital Signs: Last Vital Signs Pulse 78 05/24/24 12:28 BP 92/60 05/24/24 12:28 Pulse Ox 99 05/24/24 12:28 Oxygen Delivery Method Room Air 05/24/24 12:28 BMI result Body Mass Index 29.7 Tobacco/Smoking Status: Tobacco use Status Tobacco use date assessed 05/24/24 05/24/24 12:40 Patient Tobacco Use Status Former Tobacco user 05/24/24 12:30 e-Cigarette/Vaping Use Never Used 05/24/24 12:30 Thrive Assessment: Date of Thrive Assessment Date Thrive assessed 02/01/24 05/24/24 12:30 Currently or been in a relationship where the following occur: I choose not to answer Const General: no acute distress and alert Nutritional Appearance: obese Orientation/consciousness: patient oriented x3 HENMT Mouth: moist mucous membranes Neck Neck: Yes full ROM, Yes no lymphadenopathy and Yes supple Resp Effort & Inspection: normal respiratory effort and able to speak in complete sentences Auscultation: clear to auscultation bilaterally Cardio Rate: regular rate Rhythm: regular rhythm Heart sounds: S1 normal heart sound present and S2 normal heart sound present GI Inspection: Yes obesity Palpation (GI): Soft to palpation and no masses Neuro General: patient oriented x3 Extrem General: Yes full ROM, Yes no joint enlargement, Yes no clubbing, cyanosis or edema and Yes normal gait Psych Appearance: grossly normal and well kempt Mental Status: mental status grossly normal Speech and movement: Normal speech and movement present Affect: normal affect and Sad affect present Attitude: cooperative Thought process: Normal thought process present Thought content: Normal thought content present Results Reviewed Results Reviewed: Laboratory Tests 11/25/22 18:06 WBC 10.6 Hgb 12.4 Hct 37.6 Name: Melisa Parrish Age/Sex: 63/F : 1960 Unit#: [id number] Attend Dr: Shirley Madsen MD Re04/13/24 Status: DEP REF Location: [facility] Disch: SPEC : [id number] IRMA: 04/13/24 STATUS: COMP REQ : [id number] RECD: 04/13/[address]: Shirley Madsen MD COMP: 04/13/24 ENTERED: 04/13/[address] [facility] DR: ORDERED: Met Prof Fast, AST, ALT, Lipid Panel, Vitamin D 25-OH Test Result Flag Reference Sodium 140 135-145 mmol/L Potassium 3.7 3.3-5.1 mmol/L CL 105 96-108 mmol/L CO2 27 22-29 mmol/L Gap 12 12-20 BUN 14 9-16 mg/dL Creat 0.84 0.5-1.4 mg/dL EGFR > 60 NOTE: For -Cymro individuals, multiply the result by 1.210. Chronic Kidney Disease: Estimated GFR < 60 mL/min/1.73m2 Severe Kidney Disease: Estimated GFR < 15 mL/min/1.73m2 FBS 98 60-99 mg/dL CA 9.5 8.4-10.2 mg/dL AST (GOT) 15 5-31 U/L ALT (GPT) 13 0-31 U/L Triglyceride 75 <150 mg/dL Desirable Triglyceride: less than 150 mg/dL Borderline High Triglyceride 150-199 mg/dL High Triglyceride: 200-499 mg/dL Very High Triglyceride: greater than or equal to 5OO mg/dL Cholesterol 217 H <200 mg/dL Desirable Cholesterol: less than 200 mg/dL Borderline High Cholesterol: 200-239 mg/dL High Cholesterol: greater than 239 mg/dL LDL Calculated 138 H <100 mg/dL Desirable LDL: less than 100 mg/dL Near Optimal/Above Optimal LDL: 110-129 mg/dL Borderline High LDL: 130-159 mg/dL High LDL: 160-189 mg/dL Very High LDL: greater than or equal to 190 mg/dL HDL 64 >40 mg/dL Desirable HDL: greater than 40 mg/dL Note: This HDL assay may give artificially low results in patients with liver disease. Vit D 25-OH Tot 48.3 >30 ng/mL Health Based Reference Values* < 20 ng/mL Deficient 20-30 ng/mL Insufficient > 30 ng/mL Sufficient Coding Level of Care Code Est Pt Level 3 (81556) Diagnoses Intermittent palpitations R00.2 Assessment & Plan Assessment & Plan (1) Intermittent palpitations: Code(s): R00.2 - Palpitations Category: Medical Plan: EKG done today showed normal sinus rhythm with no acute ST-T changes seen., no no PACs or PVC 's seen . Currently asymptomatic. Advised that if symptoms persists, may affect accompanied by any lightheadedness, chest pain to go immediately to the ER. Reviewed medication list, could be that she has been using her albuterol inhaler more than usual which could cause palpitations when used excessively. Orders: Orders AMB EKG-In Office 05/24/24 R00.2 - Palpitations
== END 2024-05-24 14:25 | disposition home or self-care (01) ==
PROVIDERS: PCP Internal Medicine; Visit Provider Internal Medicine
DX: R00.2 Palpitations (principal)

== ENCOUNTER → 2024-05-24 12:16 | Outpatient (BNVA) | payer OTHER, SELFPAY | PROVIDERS: PCP Internal Medicine; Visit Provider Internal Medicine | DX: R00.2 Palpitations (principal) | CPT/HCPCS: 99212 ==

== ENCOUNTER 2024-06-23 11:32 | Outpatient (AMB) | payer OTHER, SELFPAY ==
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
== END 2024-06-23 11:59 | disposition home or self-care (01) ==
LOC: HO.HOP 11:32
PROVIDERS: PCP Internal Medicine; Visit Provider Clinical Nurse Specialist Psychiatric/Mental Health
DX: F41.1 Generalized anxiety disorder (principal); F33.1 Major depressive disorder, recurrent, moderate
CPT/HCPCS: 99214

== ENCOUNTER → 2024-06-23 11:32 | Outpatient (BNVA) | payer OTHER, SELFPAY | PROVIDERS: PCP Internal Medicine; Visit Provider Clinical Nurse Specialist Psychiatric/Mental Health | DX: F41.1 Generalized anxiety disorder (principal); F33.1 Major depressive disorder, recurrent, moderate; Z71.89 Other specified counseling | CPT/HCPCS: 99212 ==

== ENCOUNTER → 2024-08-04 11:28 | Outpatient (AMB) | payer OTHER, SELFPAY ==
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
== END | disposition home or self-care (01) ==
PROVIDERS: PCP Internal Medicine; Visit Provider Clinical Nurse Specialist Psychiatric/Mental Health
DX: F33.1 Major depressive disorder, recurrent, moderate (principal); F41.1 Generalized anxiety disorder
CPT/HCPCS: 99214

== ENCOUNTER → 2024-08-04 11:28 | Outpatient (BNVA) | payer OTHER, SELFPAY | PROVIDERS: PCP Internal Medicine; Visit Provider Clinical Nurse Specialist Psychiatric/Mental Health | DX: F33.1 Major depressive disorder, recurrent, moderate (principal); F41.1 Generalized anxiety disorder; Z71.89 Other specified counseling | CPT/HCPCS: 99212 ==

== ENCOUNTER 2024-08-07 13:23 | Outpatient (REF) | payer OTHER, SELFPAY ==
--- NOTE | ~2024-08-07 | XR_ITS ---
EXAMINATION: XR KNEE, LEFT CLINICAL INFORMATION: M25.562 - Pain in left knee COMPARISON: None available. TECHNIQUE: Four views of the left knee. FINDINGS: No fracture, dislocation, or suspicious bone lesion. Normal alignment. Mild medial compartment joint space narrowing. Lateral and patellofemoral compartments appear preserved. There is a moderate sized suprapatellar joint effusion. Soft tissues appear normal. XR/XR knee LT 4V IMPRESSION: 1. No acute bony findings. 2. Moderate suprapatellar joint effusion. 3. Mild arthritis most significant medial compartment Electronically signed by: Theodore Curtis MD 08/07/2024 02:49 PM [facility]
== END 2024-08-07 13:24 | disposition home or self-care (01) ==
LOC: HO.HMGCX 13:23
PROVIDERS: PCP Internal Medicine; Visit Provider Physician Assistant
DX: M25.562 Pain in left knee (principal); M25.462 Effusion, left knee
CPT/HCPCS: 73564; 99212

== ENCOUNTER 2024-08-07 13:26 | Outpatient (AMB) | payer OTHER, SELFPAY ==
[2024-08-07 14:18] VITALS: BP 100/72; PULSE 105; O2SAT 97
--- NOTE | 2024-08-07 14:18 | MHC.OFFWIV ---
Intake Vital Signs 08/07/24 14:18 Weight 182 lb BP 100/72 Blood Pressure Location Lt brachial Position Sitting Pulse 105 H Pulse Source Pulse Oximeter Pulse Oximetry (%) 97 Oxygen Delivery Method Room Air Intake Visit Reasons: EP Pain on LT knee Intake Note: Patient here for left knee pain that has been present since 07/12. Patient Tobacco Use Status: Former Tobacco user Allergies ciprofloxacin Allergy (Unknown, Verified 08/07/24 14:18) hives/edema citalopram [Celexa] Allergy (Unknown, Verified 08/07/24 14:18) unknown , ? itching sertraline [Zoloft] Allergy (Unknown, Verified 08/07/24 14:18) hives Sulfa (Sulfonamide Antibiotics) Allergy (Unknown, Verified 08/07/24 14:18) edema, itching sulfamethoxazole [From Septra] Allergy (Verified 08/07/24 14:18) Angioedema trimethoprim [From Septra] Allergy (Verified 08/07/24 14:18) Angioedema Do you need a note to return to daycare/school/sports/work: No HPI HPI Comments History of Present Illness Details History of Present Illness - The patient is a 63-year-old female presenting with left knee pain and swelling. - Knee discomfort started in mid-June after a dog walk where the dog was pulling on her, suggesting a potential knee strain. - The patient mentions a recurrence of pain and swelling after initial improvement, stating difficulty walking normally, with limping noted. - She had self-medicated with ibuprofen but discontinued due to kidney health concerns, though some pain relief was reported. - Last evening, when repositioning at night, she experienced a sensation jamison to a snapping within the knee. - The pain impairs her ability to kneel or squat - no previous direct knee trauma reported. Physical Exam General: Cooperative, healthy appearing, comfortable, no acute distress and well developed Orientation: Patient oriented x3 Limitations: Limping, unable to kneel or squat without pain Head: Normal to inspection Ears: Hearing grossly normal bilaterally Nose: Normal external nose present Face and sinus: Normal facial exam Eyes: Appearance normal, both eyes and all related structures Neck: Normal visual inspection and Yes full ROM Respiratory: Normal respiratory effort and able to speak in complete sentences. Skin: No rashes or lesions noted Neuro: Patient oriented x3 Extremities: as below COUNT INCLUDES [facility] Medical History (Updated 08/07/24 @ 14:29 by Pat Zepeda PA-C) Intermittent palpitations Environmental and seasonal allergies Acute viral pharyngitis COVID-19 vaccination declined Osteoporosis History of uterine fibroid Mild intermittent asthma Obesity Urticaria Allergic rhinitis ANA on CPAP Surgical History History of partial hysterectomy Hx of LASIK Hx of dilation and curettage Hx of colonoscopy Family History Father Diabetes Gout Obese Mother Colon cancer H/O: hysterectomy Maternal Aunt Cancer Maternal Aunt Cancer Social History Household Members: Friend(s) Housing: House Alcohol intake: current Alcohol intake frequency: holidays/special occasions only Alcohol type: beer, wine and hard liquor Patient Tobacco Use Status: Former Tobacco user Cigarettes Per Day: 2 e-Cigarette/Vaping Use: Never Used Second Hand Smoke Exposure: No service: No Current occupational status: employed Cognitive needs: No Hearing needs: No Vision needs: Yes Review of Systems Const All systems reviewed & are unremarkable except as noted in HPI and below Physical Exam Vital Signs: Last Vital Signs Pulse 105 H 08/07/24 14:18 BP 100/72 08/07/24 14:18 Pulse Ox 97 08/07/24 14:18 Oxygen Delivery Method Room Air 08/07/24 14:18 Extrem Left lower extremity: knee Details: abnormal to inspection (swelling) Details: not erythematous, tenderness Location: of the medial joint line, swelling (throughout), normal ROM and knee ligament exam normal; no abrasions, no lacerations, no ecchymosis, no crepitus, no foreign bodies, no penetrating wound and no deformity Assessment & Plan Assessment & Plan (1) Left knee pain: Code(s): M25.562 - Pain in left knee Qualifiers: Chronicity: acute Qualified Code(s): M25.562 - Pain in left knee Plan: An X-ray will be conducted on the left knee to assess for joint effusion or structural abnormalities. This imaging will inform whether fluid drainage is necessary. The patient is advised against overuse of the affected knee to prevent further aggravation of the condition. Follow-up will occur after the imaging results to outline further interventions and management strategies. My interpretation of XR is normal, will send naproxen to pharmacy for PRN use, HERLINDA wrapped knee, and will send Ortho referral for pt if no improvement over the next few weeks. Patient was informed and verbally consented to the use of an ambient scribe for clinic note documentation during this visit. Orders: Referrals Orthopedics Referral M25.562 - Pain in left knee Medications: New naproxen 500 mg PO Q12H PRN 20 tabs 0RF pain Coding Level of Care Code Est Pt Level 4 (20046) Diagnoses Acute pain of left knee M25.562 Chronicity: acute
== END 2024-08-07 14:58 | disposition home or self-care (01) ==
LOC: HO.HMCWIC 13:26
PROVIDERS: PCP Internal Medicine; Visit Provider Physician Assistant
DX: M25.562 Pain in left knee (principal)

== ENCOUNTER → 2024-08-07 14:35 | Outpatient (BNV) | payer OTHER, SELFPAY | PROVIDERS: PCP Internal Medicine; Visit Provider Radiology Diagnostic Radiology | DX: M25.562 Pain in left knee (principal) | CPT/HCPCS: 73564 ==

== ENCOUNTER 2024-08-10 13:08 | Outpatient (REF) | payer OTHER, SELFPAY ==
--- NOTE | ~2024-08-10 | MM_ITS ---
EXAMINATION: DXA BONE DENSITY AXIAL HISTORY: Estrogen deficiency TECHNIQUE: [place] [employer] Dual energy absorptiometry (DEXA) of the lumbar spine, total left hip, and femoral neck was performed. COMPARISON: Comparison is made with the prior examination dated 05/03/2019. FINDINGS: The bone mineral density of the lumbar spine is 0.779 with a T-score of -3.3, and a Z-score of -2.4. This represents a BMD change of -9.7% compared to the prior exam. This is statistically significant. The bone mineral density of the left total hip is 0.888 with a T-score of -0.9, and a Z-score of -0.3. This represents BMD change of -6.6% compared to the prior exam. This is statistically significant. The bone mineral density of the left femoral neck is 0.847 with a T-score of -1.4, and a Z-score of -0.4. This represents BMD change of 2.0% compared to the prior exam. MM/XR DEXA axial skeleton IMPRESSION: Based on bone mineral density, and according to World Health Organization (WHO) criteria, the diagnosis is consistent with osteoporosis. All bone density values are in grams per centimeter squared (g/cm2). Statistically, 68% of repeat scans fall within 1 SD (+/- 0.010 g/cm2 for AP spine L1-L4) and 1 SD (+/- 0.012 g/cm2 for femur total) FRAX is a trademark of the [employer] [place] for Metabolic Bone Disease, a World Health Organization (WHO) Collaborating Center. Electronically signed by: Martinez Littlejohn MD 08/10/2024 02:45 PM [facility]
== END 2024-08-10 13:09 | disposition home or self-care (01) ==
LOC: HO.MAMMO 13:08
PROVIDERS: PCP Internal Medicine; Visit Provider Internal Medicine
DX: Z12.31 Encounter for screening mammogram for malignant neoplasm of breast (principal); M81.0 Age-related osteoporosis without current pathological fracture
CPT/HCPCS: 77063; 77067; 77080

== ENCOUNTER → 2024-08-10 13:30 | Outpatient (BNV) | payer OTHER, SELFPAY | PROVIDERS: PCP Internal Medicine; Visit Provider Radiology Diagnostic Radiology | DX: Z12.31 Encounter for screening mammogram for malignant neoplasm of breast (principal) | CPT/HCPCS: 77063; 77067 ==

== ENCOUNTER 2024-08-21 08:19 | Outpatient (REF) | payer OTHER, SELFPAY ==
--- NOTE | ~2024-08-21 | XR_ITS ---
EXAMINATION: XR KNEE, LEFT CLINICAL INFORMATION: M25.569 - Pain in unspecified knee COMPARISON: None available. TECHNIQUE: AP bilateral knees standing, and patellofemoral view left knee. of the left knee. FINDINGS: Right knee: Normal imaging appearance. Preserved joint spaces. Normal soft tissues. Left knee: No fracture, dislocation, or suspicious bone lesion. There is mild medial compartment joint space narrowing. The lateral patellofemoral compartments appear normal. Minimal spurring of the medial tibial spine. Normal patellar alignment with preserved patellofemoral joint space. Normal soft tissues. XR/XR knee LT 2V IMPRESSION: 1. Left knee demonstrating mild medial compartment joint space narrowing. Electronically signed by: Theodore Curtis MD 08/22/2024 02:40 PM [facility]
== END 2024-08-21 08:20 | disposition home or self-care (01) ==
LOC: HO.HOSX 08:19
PROVIDERS: Visit Provider Physician Assistant
DX: M25.562 Pain in left knee (principal); M17.12 Unilateral primary osteoarthritis, left knee
CPT/HCPCS: 73560; 99202

== ENCOUNTER 2024-08-21 13:15 | Outpatient (AMB) | payer OTHER, SELFPAY ==
--- NOTE | 2024-08-21 13:44 | MHC.OFFVIS ---
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 Patient was previously seen at the [facility] [place] for her concerns. She Reports onset of pain 07/12/2024 when she was walking the dogs and they were pulling on the leash. She has tried Tylenol which was mildly helpful. Her pain is felt all the time, she feels a popping sensation with twisting. Allergies ciprofloxacin Allergy (Unknown, Verified 08/07/24 14:18) hives/edema citalopram [Celexa] Allergy (Unknown, Verified 08/07/24 14:18) unknown , ? 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 Patient was previously seen at the [facility] [place] for her concerns. She Reports onset of pain 07/12/2024 when she was walking the dogs and they were pulling on the leash. She has tried Tylenol which was mildly helpful. Her pain is felt all the time, she feels a popping sensation with twisting. [facility] Medical History (Updated 08/24/24 @ 09:44 by Kevin Brunner MD) Intermittent palpitations Environmental and seasonal allergies Acute viral pharyngitis COVID-19 vaccination declined Osteoporosis History of uterine fibroid Mild intermittent asthma Obesity Urticaria Allergic rhinitis ANA on CPAP Surgical History History of partial hysterectomy Hx of LASIK Hx of dilation and curettage Hx of colonoscopy Family History Father Diabetes Gout Obese Mother Colon cancer H/O: hysterectomy Maternal Aunt Cancer Maternal Aunt Cancer Social History Household Members: Friend(s) Housing: House Alcohol intake: current Alcohol intake frequency: holidays/special occasions only Alcohol type: beer, wine and hard liquor Patient Tobacco Use Status: Former Tobacco user Cigarettes Per Day: 2 e-Cigarette/Vaping Use: Never Used Second Hand Smoke Exposure: No service: No Current occupational status: employed Cognitive needs: No Hearing needs: No Vision needs: Yes Physical Exam Vital Signs: BMI result Body Mass Index 29.7 Extrem Other: Full ROM and trace effusion TTP medial joitn line with neg Steinmen's Results Reviewed Results Reviewed: I personally reviewed relevant radiographs. Moderately decreased joint space medial compartment left knee Assessment & Plan Assessment & Plan (1) Arthritis of left knee: Code(s): M17.12 - Unilateral primary osteoarthritis, left knee Category: Medical Plan: Left knee OA, moderate. She is improving but still with mild pain. Does not want injection at this time. May consider NSAIDs. Will send rx for Meloxicam. Will work with PT for HEP. Orders: Orders XR knee LT 2V 08/21/24 Kassy Taveras PA-C M25.569 - Pain in unspecified knee PT Evaluation and Treatment Today Kevin Brunner MD M17.12 - Unilateral primary osteoarthritis, left knee XR knee RT 1V 08/21/24 Kassy Taveras PA-C M25.569 - Pain in unspecified knee Medications: New meloxicam 15 mg PO DAILY 30 tabs 2RF Kevin Brunner MD Discontinued duloxetine (Cymbalta) Discontinued Reason: Doctor's Order 60 mg PO DAILY 30 caps 2RF duloxetine Discontinued Reason: Doctor's Order 40 mg PO DAILY 30 caps 2RF Coding Level of Care Code New Pt Level 3 (92060) Diagnoses Arthritis of left knee M17.12
[2024-08-21 13:45] VITALS: BMI 29.7
== END 2024-08-21 14:31 | disposition home or self-care (01) ==
PROVIDERS: PCP Internal Medicine; Visit Provider Orthopaedic Surgery
DX: M17.12 Unilateral primary osteoarthritis, left knee (principal)
CPT/HCPCS: 99203

== ENCOUNTER → 2024-08-21 13:31 | Outpatient (BNV) | payer OTHER, SELFPAY | PROVIDERS: Visit Provider Radiology Diagnostic Radiology | DX: M25.562 Pain in left knee (principal) | CPT/HCPCS: 73560 ==

== ENCOUNTER 2024-09-20 10:58 | Outpatient (REF) | payer OTHER, SELFPAY ==
--- NOTE | ~2024-09-20 | US_ITS ---
EXAMINATION: MM DIAGNOSTIC DIGITAL BREAST TOMOSYNTHESIS, BILATERAL CLINICAL INFORMATION: Call back from screening for bilateral asymmetries. COMPARISON: Mammography: Comparison is made with relevant prior exams. TECHNIQUE: Digital breast mammography with tomosynthesis is performed in both the craniocaudal and mediolateral oblique views along with computer-aided detection (CAD). FINDINGS: The breasts are heterogeneously dense, which may obscure small masses (ACR BI-RADS breast composition Category c). Bilateral asymmetries partially effaces on additional imaging projections. No suspicious calcifications or other abnormal findings. Targeted color Doppler ultrasound scanning in the left breast from 11-3 o'clock demonstrates normal fibroglandular breast tissue and a minimally complicated cyst at 12:00 3 cm from the nipple measuring 4 x 3 x 5 mm with no internal vascular flow. Targeted color Doppler ultrasound in the right breast from 7-12 o'clock demonstrates normal fibroglandular breast tissue. There is an incidental simple cyst at 9:00 5 cm from nipple measuring 6 x 2 x 5 mm. Results are provided to the patient at time of visit by the technologist. US/US breast BI limited mamm only IMPRESSION: Bilateral focal asymmetries in the upper-outer breast without definite sonographic abnormalities. Recommend six-month follow-up mammography bilaterally for further evaluation of stability. ASSESSMENT: BI-RADS BI-RADS 3 - Probably benign finding(s) - 6 month follow-up suggested RECOMMENDATION: 6 Month F/U This patient's information was entered into a reminder system with a target due date for their next mammogram. Electronically signed by: Janet Hunt DO 09/20/2024 01:01 PM EDT
== END 2024-09-20 10:59 | disposition home or self-care (01) ==
LOC: HO.MAMMO 10:58
PROVIDERS: PCP Internal Medicine; Visit Provider Internal Medicine
DX: N64.89 Other specified disorders of breast (principal)
CPT/HCPCS: 76642; 77062; 77066

== ENCOUNTER → 2024-09-20 11:00 | Outpatient (BNV) | payer OTHER, SELFPAY | PROVIDERS: PCP Internal Medicine; Visit Provider Internal Medicine | DX: R92.8 Other abnormal and inconclusive findings on diagnostic imaging of breast (principal) | CPT/HCPCS: 76642; 77062; 77066 ==

== ENCOUNTER 2024-10-06 08:00 | Outpatient (RCR) | payer OTHER, SELFPAY ==
--- NOTE | 2024-09-08 08:58 | MHC.PT.EP ---
[facility] [place] Office [place] Office [place] Office [address] Octavio Mendoza [address] [phone] F: [phone] F: [phone] F: [phone] F: [phone] Physical Therapy Plan of Care Date of Evaluation: 09/08/24 Date of Surgery: n/a Diagnosis: unilateral primary OA L knee Assessment: Patient is a 63 year old female presenting to PT with complaints of pain in her L knee. Pt reports onset of pain began 2 months ago due to walking a dog. She presents today with impairments in pain, knee strength, hip strength, decreased muscle length. 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 Pt expresses assisted goal of reducing pain, and is motivated to work towards this in PT. Clinical presentation today is most consistent with signs and sx associated with L knee pain and pt will benefit from skilled PT 2 week x 4 weeks to address the following problems and impairments noted upon evaluation: pain, knee strength, hip strength, decreased muscle length. These problems limit the patient with the following functional activities: ADLs, ambulating, stair negotiation. The prescribed treatment plan of care is medically necessary. Co-morbidities of osteoporosis were identified and taken into considerations of plan of care. Pt was educated on HEP, role of PT, prognosis, POC. Frequency and Duration: The patient will be seen 2 x week x 4 weeks Short Term Goals: Pt will demonstrate less pain at rest to <3/10 in 2 weeks. Pt will demonstrate improved hip MMT strength by 1/3 grade in 2 weeks. Pt will demonstrate improved L knee MMT strength by 1/3 grade in 2 weeks. Integrity Consultant Goals: Pt will demonstrate improved LEFI score by 9 points in 4 weeks for improved functional mobility. Pt will demonstrate ability to ambulate with min to no pain in 4 weeks for return to PLOF. Pt will demonstrate ability to negotiate stairs with min to no pain in 4 weeks for improved access to her home. Treatment Plan: Modalities to reduce pain, spasms and effusion. Manual therapy to restore motion and function. Therapeutic exercise to improve strength and flexibility. Neuromuscular re-education for posture and balance. Therapeutic activities to return to functional activities of daily living. Electronically signed by: Pam Barrera, PT, DPT, ATC Please sign and return to therapist. Thank you for your referral.
--- NOTE | 2024-10-06 08:49 | MHC.PT.DC ---
[facility] [place] Office [place] Office [place] Office [address] Octavio Mendoza [address] [phone] F: [phone] F: [phone] F: [phone] F: [phone] Physical Therapy Discharge Report Diagnosis: unilateral primary OA L knee Date of Surgery: n/a Date of Evaluation: 09/08/24 Date of Discharge: 10/06/24 Treatments to Date: 8 Cancellations to Date: 1 No Shows to Date: 0 Discharge Status: Achieved Goals Improved Function Independent with HEP Discharge Summary: 10/06/2024: Pt pain is improved overall since start of care although she is still having some low level discomfort at times. She is demonstrating better form with exercises. At this time max benefits of PT have been provided and skilled PT is no longer indicated. I recommend she continue with HEP at home to see if pain continues to improve and if she still has pain with continued compliance at home I recommend following up with MD for further evaluation of pain. She is in agreement with this plan. Electronically signed by: Pam Barrera, PT, DPT, ATC Please sign and return to therapist. Thank you for your referral.
== END 2024-10-06 08:49 | disposition home or self-care (01) ==
LOC: HO.PTCHIC 08:00
PROVIDERS: PCP Internal Medicine; Visit Provider Orthopaedic Surgery
DX: M17.12 Unilateral primary osteoarthritis, left knee (principal)
CPT/HCPCS: 97110; 97161

== ENCOUNTER 2024-11-09 07:55 | Outpatient (AMB) | payer OTHER, SELFPAY ==
[2024-11-09 08:14] VITALS: BP 96/60; PULSE 87; RESP 16; TEMP 36.8; O2SAT 98; BMI 28.6
--- NOTE | 2024-11-09 08:14 | MHC.PC.OV ---
Vital Signs 11/09/24 08:14 Height 5 ft 6 in Weight 177 lb BMI 28.6 BP 96/60 Blood Pressure Location Rt brachial Position Sitting Respiration 16 Pulse 87 Pulse Source Pulse Oximeter Temp 98.3 F Pulse Oximetry (%) 98 Oxygen Delivery Method Room Air Intake Visit Reasons: knee issues Intake Note: Pt is here today c/o Lt knee pain no injury noted x4mo. Allergies ciprofloxacin Allergy (Unknown, Verified 11/09/24 08:20) hives/edema citalopram [Celexa] Allergy (Unknown, Verified 11/09/24 08:20) unknown , ? itching sertraline [Zoloft] Allergy (Unknown, Verified 11/09/24 08:20) hives Sulfa (Sulfonamide Antibiotics) Allergy (Unknown, Verified 11/09/24 08:20) edema, itching sulfamethoxazole [From Septra] Allergy (Verified 11/09/24 08:20) Angioedema trimethoprim [From Septra] Allergy (Verified 11/09/24 08:20) Angioedema Medication List - Last Reconciled 11/09/24 by Shirley Madsen MD albuterol sulfate 90 mcg/actuation 2 inhalations inhalation Q4-6H PRN cholecalciferol (vitamin D3) caps PO DAILY fluticasone propionate 50 mcg/actuation (Flonase Allergy Relief) 1 spray intranasal DAILY Tobacco use date assessed: 11/09/24 Dental Screening Dental Screen Date: 11/09/24 Did you have a dental visit in the last 12 months?: Yes Did you have a dental problem in the last 6 months where you did not have access to dental care?: No Was dental information given to patient?: Patient has dentist HPI knee issues HPI Details 63-year-old lady here today complaining of persistent pain in left knee mainly on anteromedial aspirin, no history of any injury. It started approximately 4 months ago. Unable to kneel or squat due to pain, no joint swelling noted. She walks dogs, but unable to do it for more than 15 minutes due to pain in her knee Has been taking Tylenol which affords only temporary relief. X-ray of her knee showed medial compartment joint space narrowing, with lateral and patellofemoral compartments appear preserved, moderate sized suprapatellar joint effusion. Seen on x-ray done in July 2024. She has been seen by Orthopedics who recommended cortisone injection but patient declined. Patient states that she would like to know 1st what exactly is wrong with her knee before she gets disease injections . She underwent 8 weeks of physical therapy which afforded only temporary relief. She also was found to have osteoporosis in her lumbar spine on MRI done earlier this year. No history of fractures. Hesitant to start any medications at present time but has been taking vitamin-D supplements and recent labs showed adequate calcium and vitamin-D levels. Recent labs also showed presence of elevated LDL cholesterol, has an appointment already today to see nurse navigator, for dietary guidance COUNT INCLUDES [facility] Medical History (Updated 11/09/24 @ 08:45 by Shirley Madsen MD) Dyslipidemia Osteoporosis of lumbar spine Knee pain, left anterior Intermittent palpitations Environmental and seasonal allergies Acute viral pharyngitis COVID-19 vaccination declined Osteoporosis History of uterine fibroid Mild intermittent asthma Obesity Urticaria Allergic rhinitis ANA on CPAP Surgical History History of partial hysterectomy Hx of LASIK Hx of dilation and curettage Hx of colonoscopy Family History Father Diabetes Gout Obese Mother Colon cancer H/O: hysterectomy Maternal Aunt Cancer Maternal Aunt Cancer Social History Household Members: Friend(s) Housing: House Alcohol intake: current Alcohol intake frequency: holidays/special occasions only Alcohol type: beer, wine and hard liquor Patient Tobacco Use Status: Former Tobacco user Cigarettes Per Day: 2 e-Cigarette/Vaping Use: Never Used Second Hand Smoke Exposure: No service: No Current occupational status: employed Cognitive needs: No Hearing needs: No Vision needs: Yes Questionnaire PHQ-9 Over the last 2 weeks, how often have you been bothered by any of the following problems? 1. Little interest or pleasure in doing things: not at all 2. Feeling down, depressed, or hopeless: not at all 3. Trouble falling or staying asleep, or sleeping too much: not at all 4. Feeling tired or having little energy: not at all 5. Poor appetite or overeating: not at all 6. Feeling bad about yourself - or that you are a failure or have let yourself or your family down: not at all 7. Trouble concentrating on things, such as reading the newspaper or watching television: not at all 8. Moving or speaking so slowly that other people could have noticed. Or the opposite - being so fidgety or restless that you have been moving around a lot more than usual: not at all 9. Thoughts that you would be better off or of hurting yourself in some way: not at all Total score: 0 Depression Screening Interpretation: Negative (Depression improving and almost resolved with TM S therapy) Depression Screening Done: Yes 89335 - PHQ-9 Billing: Yes Source: Developed by Drs. Martinez Marie, Velma Colon, Kemal Valadez and colleagues, with an educational ev from [employer]. Thrive Questionnaire Date Thrive assessed: 11/09/24 I am a: Patient What is your living situation today?: I have a steady place to live Within the past 12 months, did the food you bought not last and you didn't have the money to get more?: I choose not to answer this question Within the past 12 months, did you worry whether your food would run out before you got money to buy more?: I choose not to answer this question Do you have trouble paying for medicines?: I choose not to answer this question Do you have trouble getting transportation to medical appointments?: I choose not to answer this question Do you have trouble paying your heating and electricity bill?: I choose not to answer this question Do you have trouble taking care of your child, family member or friend?: I choose not to answer this question Do you have trouble with day-to-day activities such as bathing, preparing meals, shopping, managing finances, etc.?: Yes Are you currently unemployed and looking for a job?: I choose not to answer this question Are you interested in more education?: No Please select the resources that you would like help with: Food Currently or been in a relationship where the following occur: I choose not to answer THRIVE Score: 0 AUDIT C Alcohol Use Questionnaire (AUDIT-C) 1. How often do you have a drink containing alcohol?: Never Total Score: 0 MELA-7 AMB Questionnaire MELA-7 Date MELA - 7 assessed: 11/09/24 Feeling nervous, anxious, or on edge: 0 = Not at all Not being able to stop or control worryin = Not at all Worrying too much about different things: 0 = Not at all Trouble relaxin = Not at all Being so restless that it is hard to sit still: 0 = Not at all Becoming easily annoyed or irritable: 0 = Not at all Feeling afraid as if something awful might happen: 0 = Not at all Total MELA-7 score (0-4 normal; 5-9 mild; 10-14 moderate; 15-21 severe): 0 Source: Developed by Drs. Martinez Marie, Velma Colon, Kemal Valadez and colleagues, with an educational ev from [employer]. MELA-7 Assessment Billing MELA-7 Assessment Tool: MELA-7 Assessment 11785 Review of Systems Const Denies chills, Denies fatigue and Denies fever(s) Eyes Reports no additional complaints ENT Reports no additional complaints Card Reports no additional complaints Resp Reports no additional complaints GI Reports no additional complaints Reports no additional complaints Musc Reports as per HPI Neuro Reports no additional complaints Psych Reports as per HPI Endo Denies fatigue Ervin/Lymph Reports no additional complaints Aller/Immun Reports seasonal rhinorrhea Physical exam (Primary Care) Vital Signs: Last Vital Signs Temp 98.3 F 11/09/24 08:14 Pulse 87 11/09/24 08:14 Resp 16 11/09/24 08:14 BP 96/60 11/09/24 08:14 Pulse Ox 98 11/09/24 08:14 Oxygen Delivery Method Room Air 11/09/24 08:14 BMI result Body Mass Index 28.6 Tobacco/Smoking Status: Tobacco use Status Tobacco use date assessed 05/24/24 05/24/24 12:40 Patient Tobacco Use Status Former Tobacco user 08/07/24 14:19 e-Cigarette/Vaping Use Never Used 05/24/24 12:30 Depression Screening Interpretation: Negative (Depression improving and almost resolved with TM S therapy) Thrive Assessment: Date of Thrive Assessment Date Thrive assessed 02/01/24 08/08/24 15:34 Currently or been in a relationship where the following occur: I choose not to answer Const General: no acute distress and alert Nutritional Appearance: obese Orientation/consciousness: patient oriented x3 HENMT Mouth: moist mucous membranes Neck Neck: Yes full ROM, Yes no lymphadenopathy and Yes supple Resp Effort & Inspection: normal respiratory effort and able to speak in complete sentences Auscultation: clear to auscultation bilaterally Cardio Rate: regular rate Rhythm: regular rhythm Heart sounds: S1 normal heart sound present and S2 normal heart sound present GI Inspection: Yes obesity Palpation (GI): Soft to palpation and no masses Neuro Other: Currently undergoing TMS therapy in [place] at my [address] for treatment of her depression, now not on any medications. General: patient oriented x3 Extrem General: Yes full ROM, Yes no joint enlargement and Yes normal gait Psych Appearance: grossly normal and well kempt Mental Status: mental status grossly normal Speech and movement: Normal speech and movement present Affect: normal affect Thought process: Normal thought process present Thought content: Normal thought content present Coding Level of Care Code Est Pt Level 4 (09665) Complex EM visit Add On G2211 Diagnoses Knee pain, left anterior M25.562 Osteoporosis of lumbar spine M81.0 Dyslipidemia E78.5 Additional Codes PHQ-9 - 79936 - PHQ-9 Billing: Yes ([id number]) MELA-7 Assessment Billing - MELA-7 Assessment Tool: MELA-7 Assessment 67181 ([id number]) Assessment & Plan Assessment & Plan (1) Knee pain, left anterior: Code(s): M25.562 - Pain in left knee Category: Medical Plan: MRI of left knee ordered, joint pain not improved with conservative measures or physical therapy, prescription sent for diclofenac gel 1% apply and massaged to up to affected knee 4 times a day as needed. (2) Osteoporosis of lumbar spine: Code(s): M81.0 - Age-related osteoporosis without current pathological fracture Category: Medical Plan: Referred to endocrine for further evaluation management, patient hesitant to start any medication at present time. Advised to continue vitamin-D supplements and take adequate calcium from dietary sources. Weight bearing exercise strongly recommended patient advised to let us know if after 10 days she does not receive any appointments so that we can follow-up on it (3) Dyslipidemia: Code(s): E78.5 - Hyperlipidemia, unspecified Category: Medical Plan: Reviewed recent fasting lab results with her, referred to nurse navigator for dietary guidance Orders: Orders MR knee LT wo con Today M25.562 - Pain in left knee Referrals Endocrinology Referral M81.0 - Age-related osteoporosis without current pathological fracture Medications: New diclofenac sodium 1% apply to single elbow, wrist or hand; for hand includes palm/fingers/back of hand 4 grams topical QID PRN 100 grams 0RF Joint pain
== END 2024-11-09 08:56 | disposition home or self-care (01) ==
LOC: HO.HMCC 07:56
PROVIDERS: PCP Internal Medicine; Visit Provider Internal Medicine
DX: M25.562 Pain in left knee (principal); M81.0 Age-related osteoporosis without current pathological fracture; E78.5 Hyperlipidemia, unspecified

== ENCOUNTER → 2024-11-09 07:55 | Outpatient (BNVA) | payer OTHER, SELFPAY | PROVIDERS: PCP Internal Medicine; Visit Provider Internal Medicine | DX: M25.562 Pain in left knee (principal); M81.0 Age-related osteoporosis without current pathological fracture; E78.5 Hyperlipidemia, unspecified; Z71.89 Other specified counseling; Z79.899 Other long term (current) drug therapy | CPT/HCPCS: 96127; 99212 ==

== ENCOUNTER 2024-11-15 08:47 | Outpatient (AMB) | payer OTHER, SELFPAY ==
--- NOTE | 2024-11-15 08:51 | MHC.OFFVIS ---
Vital Signs 11/15/24 08:53 Height 5 ft 6.22 in Weight 178 lb 2.136 oz BMI 28.6 BP 98/58 L Blood Pressure Location Rt brachial Position Sitting Pulse 87 Pulse Source Pulse Oximeter Pulse Oximetry (%) 97 Oxygen Delivery Method Room Air Intake Visit Reasons: Age related Osteoporosis Intake Note: New patient internally referred by PCP for Age-related Osteoporosis. 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 itching sertraline [Zoloft] Allergy (Unknown, Verified 11/15/24 08:54) hives Sulfa (Sulfonamide Antibiotics) Allergy (Unknown, Verified 11/15/24 08:54) edema, itching sulfamethoxazole [From Septra] Allergy (Verified 11/15/24 08:54) Angioedema trimethoprim [From Septra] Allergy (Verified 11/15/24 08:54) Angioedema HPI Comments Details: The patient is a 63-year-old female presenting for management of osteoporosis. She was diagnosed with osteoporosis a few years ago but has not initiated any specific pharmacological therapy for it. She regularly takes vitamin D3, 2000 IU daily, which has maintained appropriate levels, though she does not take calcium supplements. She has incorporated dietary sources like cheeses and broccoli in lieu of supplementing with calcium tablets. The patient has not encountered any adult fractures of the hip or spine but had a wrist fracture during childhood. Recent complaints include non-specific knee joint pain and height loss, aligning with vertebral changes plausible in osteoporosis. There is no personal history of kidney stones. Her gynecological history entails menarche at age 12 and a partial hysterectomy at age 42, with unclear details about the exact onset of menopause; she had night sweats and currently has occasional hot flashes. The patient's lifestyle history reveals prior cigarette use during adolescence, stopping about 20 years ago, and minimal to no alcohol consumption. There is no reported significant family history of osteoporosis or associated fractures. Moreover, she addresses ongoing management for depression through TMS therapy. First diagnosed in few yrs back . Not Received treatment in the past No history of pathologic fracture or ONJ. Has several servings of dietary calcium per day in the form of cheese, broccoli . Not Takes Calcium supplement . Takes 2000 IU of Vitamin D daily. The patient incorporates certain calcium-rich foods into her diet including cheddar and [place] cheese and broccoli. She lacks regular cereal intake, considering most options available as junk. She dislikes cottage cheese but maintains occasional cheese consumption preferences in the form of cheddar. The patient does not regularly consume calcium supplements due to uncertainty about the best option but receives dietary advice regarding intake, targeting 1200 mg of calcium per day. Denies ever using PPI, anticoagulant, antiepileptic or glucocorticoid medication. Not Does weight bearing exercise . The patient reported engaging in some weight-bearing exercises recently, although not regularly. There are plans to incorporate more of such exercises to aid in managing osteoporosis. She currently performs light exercises, but further evaluation and structured routine are suggested due to shoulder discomfort possibly from arthritis or related conditions. 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 UTD on dental cleanings and sees dentist every 6 months. No planned upcoming dental work or extractions. Ex tabacco user 20 yrs ago , no ETOH abuse DXA dated 08/10/24: FINDINGS: The bone mineral density of the lumbar spine is 0.779 with a T-score of -3.3, and a Z-score of -2.4. This represents a BMD change of -9.7% compared to the prior exam. This is statistically significant. The bone mineral density of the left total hip is 0.888 with a T-score of -0.9, and a Z-score of -0.3. This represents BMD change of -6.6% compared to the prior exam. This is statistically significant. The bone mineral density of the left femoral neck is 0.847 with a T-score of -1.4, and a Z-score of -0.4. This represents BMD change of 2.0% compared to the prior exam. MM/XR DEXA axial skeleton IMPRESSION: Based on bone mineral density, and according to World Health Organization (WHO) criteria, the diagnosis is consistent with osteoporosis. Labs: [facility] Medical History (Updated 11/09/24 @ 08:45 by Shirley Madsen MD) Dyslipidemia Osteoporosis of lumbar spine Knee pain, left anterior Intermittent palpitations Environmental and seasonal allergies Acute viral pharyngitis COVID-19 vaccination declined Osteoporosis History of uterine fibroid Mild intermittent asthma Obesity Urticaria Allergic rhinitis ANA on CPAP Surgical History History of partial hysterectomy Hx of LASIK Hx of dilation and curettage Hx of colonoscopy Family History Father Diabetes Gout Obese Mother Colon cancer H/O: hysterectomy Maternal Aunt Cancer Maternal Aunt Cancer Social History Household Members: Friend(s) Housing: House Alcohol intake: current Alcohol intake frequency: holidays/special occasions only Alcohol type: beer, wine and hard liquor Patient Tobacco Use Status: Former Tobacco user Cigarettes Per Day: 2 e-Cigarette/Vaping Use: Never Used Second Hand Smoke Exposure: No service: No Current occupational status: employed Cognitive needs: No Hearing needs: No Vision needs: Yes Physical Exam There are no Cushingoid features. Absence of blue sclera. Absence of kyphosis. Thyroid gland is of nl size and weighs 15 gms. There are no thyroid nodules palpated. Lungs CTA. Heart S1 S2 Reg R/R Abdominal exam benign. Muscle strength 5/5 . Examination of spine reveals absence of tenderness on palpation Assessment & Plan Assessment & Plan (1) Osteoporosis of lumbar spine: Code(s): M81.0 - Age-related osteoporosis without current pathological fracture Category: Medical Plan: This is a 63-year-old white female with a history of osteoporosis with partial secondary workup Plan is to complete the secondary workup by checking a TSH, free T4, phosphorus level, urine immunofixation, 24 hour urine for calcium and creatinine. Will ensure 1200 mg of calcium plus continued vitamin-D supplementation. Assuming secondary workup is negative considering very low bone density and high risk for fracture, consideration should be given to the use of anabolic agent 1st such as Evenity, Tymlos or Forteo followed by anti resorptive agent. 1. Osteoporosis Osteoporosis is being evaluated with the possibility of beginning treatment with an anabolic agent due to significant risk indicated by low bone density. Prescription calcium citrate supplements and dietary adjustments to achieve desired calcium intake, 1200 mg daily, will continue. I discussed osteoporosis extensively, including the management strategies focusing on fracture prevention and bone density improvement with options such as Evenity, Forteo, or Tymlos based on insurance feasibility. Risks identified include fracture dangers, particularly concerning given her spine's T-score. I emphasized dietary calcium?s importance, along with supplemental calcium citrate and vitamin D3, each with a role in supporting bone health. We touched on pertinent non-pharmacologic interventions like weight-bearing exercises. Further, the potential ancillary benefits and methods for addressing peripheral concerns like knee discomfort were outlined. We acknowledged the high cost of available therapies and insurance complexities, outlining a strategy to pursue the most appropriate option if financially feasible, with a follow-up planned in four months for progress and additional test outcomes review. - Take your vitamin D3 supplement daily, as prescribed. - Aim for 1200 mg of calcium per day through a combination of dietary sources and supplements if necessary. - - Follow up on lab orders to help us determine your treatment plan for osteoporosis. - Have a bone density test done as scheduled. - Return for a check-up in four months with results and for further evaluation. - The patient had an opportunity to ask questions regarding treatment plan. The patient expressed understanding and agreement with the above treatment plan. Patient was informed and verbally consented to the use of an ambient scribe for clinic note documentation during this visit. Orders: Orders Free T4 (Free Thyroxine) Today M81.0 - Age-related osteoporosis without current pathological fracture Creatinine, 24 Hr Group Today M81.0 - Age-related osteoporosis without current pathological fracture Phosphorus Today M81.0 - Age-related osteoporosis without current pathological fracture Thyroid Stimulating Hormone Today M81.0 - Age-related osteoporosis without current pathological fracture Immunofixation, Random Urine Today M81.0 - Age-related osteoporosis without current pathological fracture Calcium, 24 Hr Ur Today M81.0 - Age-related osteoporosis without current pathological fracture Coding Level of Care Code New Pt Level 4 (74872) Diagnoses Osteoporosis of lumbar spine M81.0
[2024-11-15 08:53] VITALS: BP 98/58; PULSE 87; O2SAT 97; BMI 28.6
== END 2024-11-15 09:44 | disposition home or self-care (01) ==
LOC: HO.ENCR 08:49
PROVIDERS: PCP Internal Medicine; Visit Provider Internal Medicine Endocrinology, Diabetes & Metabolism
DX: M81.0 Age-related osteoporosis without current pathological fracture (principal)
CPT/HCPCS: 99204

== ENCOUNTER → 2024-11-15 08:47 | Outpatient (BNVA) | payer OTHER, SELFPAY | PROVIDERS: PCP Internal Medicine; Visit Provider Internal Medicine Endocrinology, Diabetes & Metabolism | DX: M81.0 Age-related osteoporosis without current pathological fracture (principal) | CPT/HCPCS: 99202 ==

== ENCOUNTER 2024-11-24 08:10 | Outpatient (REF) | payer OTHER, SELFPAY ==
--- NOTE | ~2024-11-24 | MR_ITS ---
CLINICAL HISTORY: M25.562 - Pain in left knee --- Additional Notes or Special Instructions: Chronic l eft knee pain, more on anteromedial aspect of left knee, temporary MR left knee without gadolinium Comparison: None Findings: No fractures. No pathologic bone lesions. There is marrow edema in the medial tibial plateau. Large joint effusion. There is a Harrington's cyst. Anterior and posterior cruciate ligaments are intact. Collateral ligaments are intact. Patellar retinacula and iliotibial band are intact. No tears of the quadriceps, patellar, popliteus, or flexor tendons. There is a horizontal tear in the posterior horn of the medial meniscus. There is questionable meniscocapsular injury involving the anterior horn of the medial meniscus. The lateral meniscus is intact. IMPRESSION: 1. Horizontal posterior horn medial meniscal tear with large joint effusion. 2. Questionable anterior horn medial meniscal meniscocapsular injury. 3. Medial tibial plateau marrow edema This document has been electronically signed by: Chaz Baird MD on 11/25/2024 10:25:18
== END 2024-11-24 08:11 | disposition home or self-care (01) ==
LOC: HO.MRI 08:10
PROVIDERS: PCP Internal Medicine; Visit Provider Internal Medicine
DX: M25.562 Pain in left knee (principal)
CPT/HCPCS: 73721

== ENCOUNTER → 2024-11-24 08:12 | Outpatient (BNV) | payer OTHER, SELFPAY | PROVIDERS: PCP Internal Medicine; Visit Provider Specialist | DX: M25.562 Pain in left knee (principal) | CPT/HCPCS: 73721 ==

== ENCOUNTER 2024-12-11 08:32 | Outpatient (REF) | payer OTHER, SELFPAY ==
[2024-12-11 11:00] LABS: Phosphorus 3.2 mg/dL (2.7-4.5)
[2024-12-11 11:18] LABS: Thyroid Stimulating Hormone 1.13 uIU/mL (0.32-4.0)
== END 2024-12-11 08:33 | disposition home or self-care (01) ==
LOC: HO.HMGCLDS 08:32
PROVIDERS: PCP Internal Medicine; Visit Provider Internal Medicine Endocrinology, Diabetes & Metabolism
DX: M81.0 Age-related osteoporosis without current pathological fracture (principal)
CPT/HCPCS: 84100; 84439; 84443; 86335

== ENCOUNTER 2024-12-13 10:03 | Outpatient (REF) | payer OTHER, SELFPAY ==
[2024-12-13 10:48] LABS: Creatinine, mg/dL 48.42
[2024-12-13 11:36] LABS: Total Volume 24 Hour Urine 2050 mL
[2024-12-16 07:13] LABS: Calcium, 24 Hr Urine 275 mg/24 h; Calcium/Creatinine Ratio 258 mg/g creat (30-275); Creatinine 24Hr Urine 1.07 g/24 h (0.50-2.15)
== END 2024-12-13 10:04 | disposition home or self-care (01) ==
LOC: HO.LNP 10:03
PROVIDERS: Visit Provider Internal Medicine Endocrinology, Diabetes & Metabolism
DX: M81.0 Age-related osteoporosis without current pathological fracture (principal)
CPT/HCPCS: 82340; 82570

== ENCOUNTER 2025-02-19 09:57 | Outpatient (AMB) | payer OTHER, SELFPAY ==
--- NOTE | 2025-02-19 09:59 | MHC.OFFVIS ---
Vital Signs 02/19/25 10:03 Height 5 ft 6 in Weight 179 lb BMI 28.9 Intake Visit Reasons: OV - Left Knee OA/MMT Intake Note: Melisa is a 64 year old female who presents today for a follow up of Left Knee Pain. She has attended physical therapy and tried topical Diclofenac Gel. Patient reports she is no longer doing physical therapy but tries to walk and do the exercises she has learned at home. Currently she is finding pain relief with the Diclofenac gel. She would like to obtain MRi results and discuss treatment plan based on results. Allergies ciprofloxacin Allergy (Unknown, Verified 11/15/24 08:54) hives/edema citalopram (Celexa) Allergy (Unknown, Verified 11/15/24 08:54) unknown , ? itching sertraline (Zoloft) Allergy (Unknown, Verified 11/15/24 08:54) hives Sulfa (Sulfonamide Antibiotics) Allergy (Unknown, Verified 11/15/24 08:54) edema, itching sulfamethoxazole (From Septra) Allergy (Verified 11/15/24 08:54) Angioedema trimethoprim (From Septra) Allergy (Verified 11/15/24 08:54) Angioedema HPI HPI OV - Left Knee OA/MMT: Details: Melisa is a 64 year old female who presents today for a follow up of Left Knee Pain. She has attended physical therapy and tried topical Diclofenac Gel. Patient reports she is no longer doing physical therapy but tries to walk and do the exercises she has learned at home. Currently she is finding pain relief with the Diclofenac gel. She states the pain is tolerable and improving. She is very active. She would like to obtain MRI results and discuss treatment plan based on results. [facility] Medical History (Updated 02/19/25 @ 10:53 by Kevin Brunner MD) Tear of medial meniscus of knee Dyslipidemia Osteoporosis of lumbar spine Knee pain, left anterior Intermittent palpitations Environmental and seasonal allergies Acute viral pharyngitis COVID-19 vaccination declined Osteoporosis History of uterine fibroid Mild intermittent asthma Obesity Urticaria Allergic rhinitis ANA on CPAP Surgical History History of partial hysterectomy Hx of LASIK Hx of dilation and curettage Hx of colonoscopy Family History Father Diabetes Gout Obese Mother Colon cancer H/O: hysterectomy Maternal Aunt Cancer Maternal Aunt Cancer Social History Household Members: Friend(s) Housing: House Alcohol intake: current Alcohol intake frequency: holidays/special occasions only Alcohol type: beer, wine and hard liquor Patient Tobacco Use Status: Former Tobacco user Cigarettes Per Day: 2 e-Cigarette/Vaping Use: Never Used Second Hand Smoke Exposure: No service: No Current occupational status: employed Cognitive needs: No Hearing needs: No Vision needs: Yes Physical Exam Vital Signs: BMI result Body Mass Index 28.9 Extrem Other: Left knee with mild tenderness in the medial tibial plateau. Negative Olivier's. Mild effusion. Results Reviewed Results Reviewed: I personally reviewed the MR images. IMPRESSION: 1. Horizontal posterior horn medial meniscal tear with large joint effusion. 2. Questionable anterior horn medial meniscal meniscocapsular injury. 3. 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 She has [id number] osteoarthritis. She is improving. Her pain is minimal and surgery is not warranted. I reviewed the MRI with her. I explained that the algorithm for surgery for a degenerative meniscus tear. Given her improvement and the lack of clinical findings I do not think surgery would reliably benefit her. If her pain worsens we can rediscuss. She is amenable to this plan. She does not want surgery. Coding Level of Care Code Est Pt Level 4 (11578) Diagnoses Degenerative tear of meniscus of left knee M23.307
[2025-02-19 10:03] VITALS: BMI 28.9
== END 2025-02-19 10:41 | disposition home or self-care (01) ==
LOC: HO.HOS 09:58
PROVIDERS: PCP Internal Medicine; Visit Provider Orthopaedic Surgery
DX: M23.307 Other meniscus derangements, unspecified meniscus, left knee (principal)
CPT/HCPCS: 99213

== ENCOUNTER → 2025-02-19 09:57 | Outpatient (BNVA) | payer OTHER, SELFPAY | PROVIDERS: PCP Internal Medicine; Visit Provider Orthopaedic Surgery | DX: M25.562 Pain in left knee (principal); M23.307 Other meniscus derangements, unspecified meniscus, left knee | CPT/HCPCS: 99212 ==

== ENCOUNTER 2025-03-19 16:16 | Outpatient (AMB) | payer OTHER, SELFPAY ==
[2025-03-19 16:19] VITALS: BP 92/64; PULSE 85; O2SAT 95; BMI 28.8
--- NOTE | 2025-03-19 16:19 | MHC.OFFVIS ---
Vital Signs 03/19/25 16:19 Height 5 ft 6.22 in Weight 179 lb 7.3 oz BMI 28.8 BP 92/64 Blood Pressure Location Lt brachial Position Sitting Pulse 85 Pulse Source Pulse Oximeter Pulse Oximetry (%) 95 Oxygen Delivery Method Room Air Intake Visit Reasons: Osteoporosis Intake Note: Patient present today for Osteoporosis follow up. 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 itching sertraline (Zoloft) Allergy (Unknown, Verified 03/19/25 16:20) hives Sulfa (Sulfonamide Antibiotics) Allergy (Unknown, Verified 03/19/25 16:20) edema, itching sulfamethoxazole (From Febra) Allergy (Verified 03/19/25 16:20) Angioedema trimethoprim (From ) Allergy (Verified 03/19/25 16:20) Angioedema Medication List - Last Reconciled 03/19/25 by Martinez Ramos MD albuterol sulfate 90 mcg/actuation 2 inhalations inhalation Q4-6H PRN cholecalciferol (vitamin D3) caps PO DAILY diclofenac sodium 1% 4 grams topical QID PRN fluticasone propionate 50 mcg/actuation (Flonase Allergy Relief) 1 spray intranasal DAILY HPI Comments Details: The patient is a 63-year-old female presenting for management of osteoporosis. She was diagnosed with osteoporosis a few years ago but has not initiated any specific pharmacological therapy for it. She regularly takes vitamin D3, 2000 IU daily, which has maintained appropriate levels, though she does not take calcium supplements. She has incorporated dietary sources like cheeses and broccoli in lieu of supplementing with calcium tablets. The patient has not encountered any adult fractures of the hip or spine but had a wrist fracture during childhood. Recent complaints include non-specific knee joint pain and height loss, aligning with vertebral changes plausible in osteoporosis. There is no personal history of kidney stones. Her gynecological history entails menarche at age 12 and a partial hysterectomy at age 42, with unclear details about the exact onset of menopause; she had night sweats and currently has occasional hot flashes. The patient's lifestyle history reveals prior cigarette use during adolescence, stopping about 20 years ago, and minimal to no alcohol consumption. There is no reported significant family history of osteoporosis or associated fractures. Moreover, she addresses ongoing management for depression through TMS therapy. First diagnosed in few yrs back . Not Received treatment in the past No history of pathologic fracture or ONJ. Has several servings of dietary calcium per day in the form of cheese, broccoli . Not Takes Calcium supplement . Takes 2000 IU of Vitamin D daily. The patient incorporates certain calcium-rich foods into her diet including cheddar and [place] cheese and broccoli. She lacks regular cereal intake, considering most options available as junk. She dislikes cottage cheese but maintains occasional cheese consumption preferences in the form of cheddar. The patient does not regularly consume calcium supplements due to uncertainty about the best option but receives dietary advice regarding intake, targeting 1200 mg of calcium per day. Denies ever using PPI, anticoagulant, antiepileptic or glucocorticoid medication. Not Does weight bearing exercise . The patient reported engaging in some weight-bearing exercises recently, although not regularly. There are plans to incorporate more of such exercises to aid in managing osteoporosis. She currently performs light exercises, but further evaluation and structured routine are suggested due to shoulder discomfort possibly from arthritis or related conditions. Fracture history: No Height loss: Y [employer] history: Menarche at age 12 - Menopause partial hysterectomy at age 42 - nl menses Denies history of Kidney stones: Denies family history of Osteoporosis or hip fracture. UTD on dental cleanings and sees dentist every 6 months. No planned upcoming dental work or extractions. Ex tabacco user 20 yrs ago , no ETOH abuse DXA dated 08/10/24: FINDINGS: The bone mineral density of the lumbar spine is 0.779 with a T-score of -3.3, and a Z-score of -2.4. This represents a BMD change of -9.7% compared to the prior exam. This is statistically significant. The bone mineral density of the left total hip is 0.888 with a T-score of -0.9, and a Z-score of -0.3. This represents BMD change of -6.6% compared to the prior exam. This is statistically significant. The bone mineral density of the left femoral neck is 0.847 with a T-score of -1.4, and a Z-score of -0.4. This represents BMD change of 2.0% compared to the prior exam. MM/XR DEXA axial skeleton IMPRESSION: Based on bone mineral density, and according to World Health Organization (WHO) criteria, the diagnosis is consistent with osteoporosis. Labs: Secondary workup was negative [facility]END[facility] TO [facility] Medical History (Updated 02/19/25 @ 10:53 by Kevin Brunner MD) Tear of medial meniscus of knee Dyslipidemia Osteoporosis of lumbar spine Knee pain, left anterior Intermittent palpitations Environmental and seasonal allergies Acute viral pharyngitis COVID-19 vaccination declined Osteoporosis History of uterine fibroid Mild intermittent asthma Obesity Urticaria Allergic rhinitis ANA on CPAP Surgical History History of partial hysterectomy Hx of LASIK Hx of dilation and curettage Hx of colonoscopy Family History Father Diabetes Gout Obese Mother Colon cancer H/O: hysterectomy Maternal Aunt Cancer Maternal Aunt Cancer Social History Household Members: Friend(s) Housing: House Alcohol intake: current Alcohol intake frequency: holidays/special occasions only Alcohol type: beer, wine and hard liquor Patient Tobacco Use Status: Former Tobacco user Cigarettes Per Day: 2 e-Cigarette/Vaping Use: Never Used Second Hand Smoke Exposure: No service: No Current occupational status: employed Cognitive needs: No Hearing needs: No Vision needs: Yes Physical Exam Vital Signs: Last Vital Signs Pulse 85 03/19/25 16:19 BP 92/64 03/19/25 16:19 Pulse Ox 95 03/19/25 16:19 Oxygen Delivery Method Room Air 03/19/25 16:19 BMI result Body Mass Index 28.8 Assessment & Plan Assessment & Plan (1) Osteoporosis of lumbar spine: Code(s): M81.0 - Age-related osteoporosis without current pathological fracture Category: Medical Plan: This is a 63-year-old white female with a history of osteoporosis with secondary workup negative Plan is to talk to the patient about the use of anabolic agent 1st such as Evenity, Tymlos or Forteo followed by anti resorptive agent considering very low bone density and high risk for fracture Medications: New romosozumab-aqqg (Evenity) 210 mg (2.34 mL) subcut QMONTH 2.34 mL 11RF Coding Level of Care Code Est Pt Level 3 (45055) Diagnoses Osteoporosis of lumbar spine M81.0
== END 2025-03-19 16:33 | disposition home or self-care (01) ==
LOC: HO.ENCR 16:16
PROVIDERS: PCP Internal Medicine; Visit Provider Internal Medicine Endocrinology, Diabetes & Metabolism
DX: M81.0 Age-related osteoporosis without current pathological fracture (principal)
CPT/HCPCS: 99213

== ENCOUNTER → 2025-03-19 16:16 | Outpatient (BNVA) | payer OTHER, SELFPAY | PROVIDERS: PCP Internal Medicine; Visit Provider Internal Medicine Endocrinology, Diabetes & Metabolism | DX: M81.0 Age-related osteoporosis without current pathological fracture (principal) | CPT/HCPCS: 99212 ==

== ENCOUNTER → 2025-03-26 10:00 | Outpatient (BNV) | payer OTHER, SELFPAY | PROVIDERS: PCP Internal Medicine; Visit Provider Radiology Body Imaging | DX: R92.8 Other abnormal and inconclusive findings on diagnostic imaging of breast (principal) | CPT/HCPCS: 77062; 77066 ==

== ENCOUNTER 2025-03-26 10:01 | Outpatient (REF) | payer OTHER, SELFPAY ==
--- NOTE | ~2025-03-26 | MM_ITS ---
EXAMINATION(S): MM DIAGNOSTIC DIGITAL BREAST TOMOSYNTHESIS, BILATERAL CLINICAL INFORMATION: This is a 6-month follow-up from diagnostic mammogram/ultrasound workup on September 20, 2024 for bilateral findings: Right: Asymmetry in the lateral breast posterior depth on the CC view. Asymmetry in the superior breast on the MLO view. Left: Focal asymmetry in the upper outer quadrant middle depth. COMPARISON: Comparison made to multiple prior, most recent September 20, 2024, and most remote March 26, 2020. TECHNIQUE: Diagnostic mammogram is obtained with spot compression tomosynthesis images. FINDINGS: BREAST COMPOSITION: The breasts are heterogeneously dense, which may obscure small masses. RIGHT BREAST: Previously suggested asymmetry on the lateral breast on the CC view and asymmetry in the superior breast on the MLO view are unchanged from prior spot compression images from August 2024. LEFT BREAST: Previously suggested focal asymmetry in the upper outer quadrant is unchanged from prior spot compression images from August 2024. MM/MM tomosynthesis diagnostic BI IMPRESSION: RIGHT BREAST: Asymmetry on the CC view and asymmetry on MLO view are unchanged from August 2024. Probably benign. A 6-month follow-up mammogram is recommended. LEFT BREAST: Focal asymmetry in the upper outer quadrant is unchanged from August 2024. Probably benign. A 6-month follow-up mammogram is recommended. ASSESSMENT: Category 3: Probably benign RECOMMENDATION: 6 Month F/U Results were provided to the patient at time of visit by the technologist. This patient's information was entered into a reminder system with a target due date for their next mammogram. Electronically signed by: Emily Hayes MD 03/26/2025 10:50 AM EDT
== END 2025-03-26 10:02 | disposition home or self-care (01) ==
LOC: HO.MAMMO 10:01
PROVIDERS: PCP Internal Medicine; Visit Provider Internal Medicine
DX: R92.2 Inconclusive mammogram (principal)
CPT/HCPCS: 77062; 77066

== ENCOUNTER 2025-04-02 10:10 | Outpatient (AMB) | payer OTHER, SELFPAY ==
--- NOTE | 2025-04-02 10:36 | A.OFFPC_ITS ---
Vital Signs 04/02/25 10:41 Height 5 ft 6 in Weight 173 lb BMI 27.9 BP 100/70 Blood Pressure Location Lt brachial Position Sitting Respiration 16 Pulse 99 Pulse Source Pulse Oximeter Temp 98.5 F Temp Source Oral Pulse Oximetry (%) 99 Oxygen Delivery Method Room Air Intake Visit Reasons: PE Intake Note: Pt is here today for her PE: Last mammogram 03/26/25 Allergies ciprofloxacin Allergy (Unknown, Verified 04/02/25 10:57) hives/edema citalopram (Celexa) Allergy (Unknown, Verified 04/02/25 10:57) unknown , ? itching sertraline (Zoloft) Allergy (Unknown, Verified 04/02/25 10:57) hives Sulfa (Sulfonamide Antibiotics) Allergy (Unknown, Verified 04/02/25 10:57) edema, itching sulfamethoxazole (From Septra) Allergy (Verified 04/02/25 10:57) Angioedema trimethoprim (From Febra) Allergy (Verified 04/02/25 10:57) Angioedema Medication List - Last Reconciled 04/02/25 by Shirley Madsen MD albuterol sulfate 90 mcg/actuation 2 inhalations inhalation Q4-6H PRN cholecalciferol (vitamin D3) caps PO DAILY diclofenac sodium 1% 4 grams topical QID PRN fluticasone propionate 50 mcg/actuation (Flonase Allergy Relief) 1 spray intranasal DAILY romosozumab-aqqg (Evenity) 210 mg (2.34 mL) subcut QMONTH Tobacco use date assessed: 04/02/25 Fall risk assessment: No Falls in past year Last assessed Fall Risk: 04/02/25 Dental Screening Dental Screen Date: 11/09/24 Did you have a dental visit in the last 12 months?: Yes Did you have a dental problem in the last 6 months where you did not have access to dental care?: Yes Was dental information given to patient?: Patient has dentist HPI PE HPI Details 64-year-old lady here today for her phys ical exam. 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 Ramos who started her on Evenity. Takes cholecalciferol daily and takes calcium from dietary source Up-to-date with her screening mammogram, done last month which showed benign findings4 She had a screening colonoscopy in [address] Camacho which came back with normal results. Had a of colovaginal fistula status post robotic assisted laparoscopic takedown of colovaginal fistula with repair vaginal wall and sigmoid colectomy with colorectal anastomosis and diverting loop ileostomy 03/26/2023 for complicated diverticular disease. She had a flexible sigmoidoscopy done in [address] Mckenzie, and found to have a plication defect at the level of the anastomosis and underwent loop ileostomy closure on 03/07/2024 Had a partial hysterectomy done in the past due to uterine fibroids causing abnormal bleeding. No longer gets cervical cancer screening Has mild intermittent asthma and uses albuterol inhaler as needed . Uses her Flonase nasal spray as needed for environmental and seasonal allergies She was seen by Analia Alonso RN for treatment her major depression and anxiety disorder , previously on duloxetine, now off medication. [facility] Medical History Tear of medial meniscus of knee Dyslipidemia Osteoporosis of lumbar spine Knee pain, left anterior Intermittent palpitations Environmental and seasonal allergies Acute viral pharyngitis COVID-19 vaccination declined Osteoporosis History of uterine fibroid Mild intermittent asthma Obesity Urticaria Allergic rhinitis ANA on CPAP Surgical History History of partial hysterectomy Hx of LASIK Hx of dilation and curettage Hx of colonoscopy Family History Father Diabetes Gout Obese Mother Colon cancer H/O: hysterectomy Maternal Aunt Cancer Maternal Aunt Cancer Social History Household Members: Friend(s) Housing: House Alcohol intake: current Alcohol intake frequency: holidays/special occasions only Alcohol type: beer, wine and hard liquor Patient Tobacco Use Status: Former Tobacco user Cigarettes Per Day: 2 e-Cigarette/Vaping Use: Never Used Second Hand Smoke Exposure: No service: No Current occupational status: employed Cognitive needs: No Hearing needs: No Vision needs: Yes Questionnaire PHQ-9 Over the last 2 weeks, how often have you been bothered by any of the following problems? 1. Little interest or pleasure in doing things: several days 2. Feeling down, depressed, or hopeless: several days 3. Trouble falling or staying asleep, or sleeping too much: not at all 4. Feeling tired or having little energy: several days 5. Poor appetite or overeating: not at all 6. Feeling bad about yourself - or that you are a failure or have let yourself or your family down: not at all 7. Trouble concentrating on things, such as reading the newspaper or watching television: not at all 8. Moving or speaking so slowly that other people could have noticed. Or the opposite - being so fidgety or restless that you have been moving around a lot more than usual: not at all 9. Thoughts that you would be better off or of hurting yourself in some way: not at all Total score: 3 Depression Screening Interpretation: Positive (No improvement with TM S therapy) Depression Screening Follow-up: Existing condition (Has not been able to find a new med provider, currently off medication) and Community Mental Health Worker F/U Depression Screening Done: Yes 13750 - PHQ-9 Billing: Yes Source: Developed by Drs. Martinez Marie, Velma Colon, Kemal Valadez and colleagues, with an educational ev from [employer]. Thrive Questionnaire Date Thrive assessed: 04/02/25 I am a: Patient What is your living situation today?: I have a steady place to live Within the past 12 months, did the food you bought not last and you didn't have the money to get more?: I choose not to answer this question Within the past 12 months, did you worry whether your food would run out before you got money to buy more?: I choose not to answer this question Do you have trouble paying for medicines?: I choose not to answer this question Do you have trouble getting transportation to medical appointments?: I choose not to answer this question Do you have trouble paying your heating and electricity bill?: I choose not to answer this question Do you have trouble taking care of your child, family member or friend?: I choose not to answer this question Do you have trouble with day-to-day activities such as bathing, preparing meals, shopping, managing finances, etc.?: Yes Are you currently unemployed and looking for a job?: I choose not to answer this question Are you interested in more education?: No Please select the resources that you would like help with: Food Currently or been in a relationship where the following occur: I choose not to answer THRIVE Score: 0 AUDIT C Alcohol Use Questionnaire (AUDIT-C) 1. How often do you have a drink containing alcohol?: Never Total Score: 0 MELA-7 AMB Questionnaire MELA-7 Date MELA - 7 assessed: 11/09/24 Feeling nervous, anxious, or on edge: 0 = Not at all Not being able to stop or control worryin = Not at all Worrying too much about different things: 0 = Not at all Trouble relaxin = Not at all Being so restless that it is hard to sit still: 0 = Not at all Becoming easily annoyed or irritable: 0 = Not at all Feeling afraid as if something awful might happen: 0 = Not at all Total MELA-7 score (0-4 normal; 5-9 mild; 10-14 moderate; 15-21 severe): 0 Source: Developed by Drs. Martinez Marie, Velam Colon, Kemal Valadez and colleagues, with an educational ev from [employer]. MELA-7 Assessment Billing MELA-7 Assessment Tool: MELA-7 Assessment 02901 Review of Systems Const Denies fatigue, Denies fever(s), Denies lethargy, Denies night sweats, Denies poor appetite, Denies stops breathing during sleep and Denies weakness [facility] [place] [facility] has beginning cataracts Reports no additional complaints ENT Details: dental cleaning every 6 months Reports no additional complaints Card Reports no additional complaints Resp Reports no additional complaints GI Reports no additional complaints Reports no additional complaints Musc Reports as per HPI Skin/Breast Denies breast pain, Denies breast mass and Denies rash Neuro Reports no additional complaints and Denies weakness Psych Reports as per HPI Endo Denies fatigue Ervin/Lymph Reports no additional complaints Aller/Immun Reports seasonal rhinorrhea Physical exam (Primary Care) Vital Signs: Last Vital Signs Temp 98.5 F 04/02/25 10:41 Pulse 99 04/02/25 10:41 Resp 16 04/02/25 10:41 BP 100/70 04/02/25 10:41 Pulse Ox 99 04/02/25 10:41 Oxygen Delivery Method Room Air 04/02/25 10:41 BMI result Body Mass Index 27.9 Tobacco/Smoking Status: Tobacco use Status Tobacco use date assessed 04/02/25 04/02/25 10:46 Patient Tobacco Use Status Former Tobacco user 04/02/25 10:37 e-Cigarette/Vaping Use Never Used 04/02/25 10:37 PHQ-9: PHQ-9 Score PHQ-9: Total score 3 04/08/25 12:44 Depression Screening Interpretation: Positive (No improvement with TM S therapy) Depression Screening Follow-up: Existing condition (Has not been able to find a new med provider, currently off medication) and Community Mental Health Worker F/U Thrive Assessment: Date of Thrive Assessment Date Thrive assessed 04/02/25 04/02/25 10:46 Currently or been in a relationship where the following occur: I choose not to answer Const General: no acute distress and alert Nutritional Appearance: overweight Orientation/consciousness: patient oriented x3 HENMT Mouth: moist mucous membranes Neck Neck: Yes full ROM, Yes no lymphadenopathy and Yes supple Resp Effort & Inspection: normal respiratory effort and able to speak in complete sentences Auscultation: clear to auscultation bilaterally Cardio Rate: regular rate Rhythm: regular rhythm Heart sounds: S1 normal heart sound present and S2 normal heart sound present GI Inspection: Yes obesity Palpation (GI): Soft to palpation and no masses General: Yes no CVA tenderness Back/Spine/Pelvis Back: no CVA tenderness and No back tenderness Skin General skin exam: no rashes or lesions noted Neuro Other: had TMS therapy in [place] for treatment of her depression, no improvement , now not on any medications.seeking new psychiatrist General: patient oriented x3, gait normal, tone normal, moves all extremities, Normal light touch and pain sensation and no focal motor deficits Extrem General: Yes full ROM, Yes no joint enlargement and Yes normal gait Psych Appearance: grossly normal and well kempt Mental Status: mental status grossly normal Speech and movement: Normal speech and movement present Affect: normal affect Coding Level of Care Code Est Pt Prev Care 40-64y(63148) Diagnoses Annual visit for general adult medical examination with abnormal findings Z00.01 Mild intermittent asthma without complication J45.20 Asthma complication type: uncomplicated MELA (generalized anxiety disorder) F41.1 Environmental and seasonal allergies J30.89 Osteoporosis of lumbar spine M81.0 Dyslipidemia E78.5 Advance directive discussed with patient Z71.89 Additional Codes MELA-7 Assessment Billing - MELA-7 Assessment Tool: MELA-7 Assessment 70530 ([id number]) PHQ-9 - 72142 - PHQ-9 Billing: Yes ([id number]) Assessment & Plan Assessment & Plan (1) Annual visit for general adult medical examination with abnormal findings: Code(s): Z00.01 - Encounter for general adult medical examination with abnormal findings Plan: Will check appropriate labs. Recommended dental visit every 6 months and regular eye exams, at least every 2 years, sees [facility]. Take adequate calcium in diet and vitamin-D 3 at 2000 IU per cap once a day, in addition to weight-bearing exercises to help maintain good muscle tone and weight control. Instructed to do self-breast exam, and continue to get yearly mammogram. Immunization information provided: Reminded to get her yearly flu vaccine and COVID booster, up-to-date with pneumonia vaccination, encouraged to get shingles vaccines up-to-date with her Tdap. Up-to-date with colon cancer screening (2) Mild intermittent asthma: Code(s): J45.20 - Mild intermittent asthma, uncomplicated Category: Medical Qualifiers: Asthma complication type: uncomplicated Qualified Code(s): J45.20 - Mild intermittent asthma, uncomplicated Plan: Uses albuterol inhaler as needed. Up-to-date with pneumonia vaccination, reminded to get her flu shot and COVID booster. Patient declined getting flu vaccine on this visit (3) MELA (generalized anxiety disorder): Code(s): F41.1 - Generalized anxiety disorder Category: Medical Plan: Referred to Leydi , our mental health coordinator for assistance in getting in to be seen by a new therapist and psychiatrist (4) Environmental and seasonal allergies: Code(s): J30.89 - Other allergic rhinitis Category: Medical Plan: Uses Flonase nasal spray as needed (5) Osteoporosis of lumbar spine: Code(s): M81.0 - Age-related osteoporosis without current pathological fracture Category: Medical Plan: Currently followed by endocrine, on Evenity (6) Dyslipidemia: Code(s): E78.5 - Hyperlipidemia, unspecified Category: Medical Plan: Fasting lipid panel panel ordered (7) Advance directive discussed with patient: Code(s): Z71.89 - Other specified counseling Plan: Initiated the conversation about Advanced Directives. Advanced Directives help patients prepare for current and future decisions about their medical treatment and place of care. Discussed with patient that it is a process where a patients current condition and prognosis are reviewed, their wishes for information regarding their illness are elicited, and likely medical dilemmas are presented and options discussed. Healthcare proxy form completed today The form can be a mended as needed, reviewed yearly and make changes as needed Orders: Orders Alanine Aminotransferase 04/02/25 E66.09 - Other obesity due to excess calories, E78.5 - Hyperlipidemia, unspecified, F34.1 - Dysthymic disorder, F41.1 - Generalized anxiety disorder, J30.89 - Other allergic rhinitis, J45.20 - Mild intermittent asthma, uncomplicated, M81.0 - Age-related osteoporosis without current pathological fracture, Z00.01 - Encounter for general adult medical examination with abnormal findings, Z68.33 - Body mass index [BMI] 33.0-33.9, adult, Z71.89 - Other specified counseling Basic Metabolic Panel Fasting 04/02/25 E66.09 - Other obesity due to excess dana ories, E78.5 - Hyperlipidemia, unspecified, F34.1 - Dysthymic disorder, F41.1 - Generalized anxiety disorder, J30.89 - Other allergic rhinitis, J45.20 - Mild intermittent asthma, uncomplicated, M81.0 - Age-related osteoporosis without current pathological fracture, Z00.01 - Encounter for general adult medical examination with abnormal findings, Z68.33 - Body mass index [BMI] 33.0-33.9, adult, Z71.89 - Other specified counseling Lipid Panel 04/02/25 E66.09 - Other obesity due to excess calories, E78.5 - Hyperlipidemia, unspecified, F34.1 - Dysthymic disorder, F41.1 - Generalized anxiety disorder, J30.89 - Other allergic rhinitis, J45.20 - Mild intermittent asthma, uncomplicated, M81.0 - Age-related osteoporosis without current pathological fracture, Z00.01 - Encounter for general adult medical examination with abnormal findings, Z68.33 - Body mass index [BMI] 33.0-33.9, adult, Z71.89 - Other specified counseling Aspartate Amino Transferase 04/02/25 E66.09 - Other obesity due to excess calories, E78.5 - Hyperlipidemia, unspecified, F34.1 - Dysthymic disorder, F41.1 - Generalized anxiety disorder, J30.89 - Other allergic rhinitis, J45.20 - Mild intermittent asthma, uncomplicated, M81.0 - Age-related osteoporosis without current pathological fracture, Z00.01 - Encounter for general adult medical examination with abnormal findings, Z68.33 - Body mass index [BMI] 33.0-33.9, adult, Z71.89 - Other specified counseling
[2025-04-02 10:41] VITALS: BP 100/70; PULSE 99; RESP 16; TEMP 36.9; O2SAT 99; BMI 27.9
== END 2025-04-02 11:21 | disposition home or self-care (01) ==
LOC: HO.HMCC 10:11
PROVIDERS: PCP Internal Medicine; Visit Provider Internal Medicine
DX: Z00.01 Encounter for general adult medical examination with abnormal findings (principal); J45.20 Mild intermittent asthma, uncomplicated; F41.1 Generalized anxiety disorder; J30.89 Other allergic rhinitis; M81.0 Age-related osteoporosis without current pathological fracture; E78.5 Hyperlipidemia, unspecified; Z71.89 Other specified counseling

== ENCOUNTER → 2025-04-02 10:10 | Outpatient (BNVA) | payer OTHER, SELFPAY | PROVIDERS: PCP Internal Medicine; Visit Provider Internal Medicine | DX: Z00.01 Encounter for general adult medical examination with abnormal findings (principal); J45.20 Mild intermittent asthma, uncomplicated; F41.1 Generalized anxiety disorder; J30.89 Other allergic rhinitis; M81.0 Age-related osteoporosis without current pathological fracture; E78.5 Hyperlipidemia, unspecified; Z71.89 Other specified counseling; Z90.711 Acquired absence of uterus with remaining cervical stump | CPT/HCPCS: 96127; 99396 ==